=== PATIENT | female | born 1980 | race African-American/Black ===

== ENCOUNTER 2020-07-03 15:30 | Emergency (ER) | payer OTHER, SELFPAY ==
[2020-07-03] VITALS (13 sets, daily range): BP systolic 136–185; BP diastolic 87–102; PULSE 67–88; RESP 14–25; TEMP 37.3; O2SAT 97–100
--- NOTE | 2020-07-03 15:42 | DI.RAD.S_ITS ---
PROCEDURE: XR CHEST 2V INDICATIONS: Shortness of breath TECHNIQUE: 2 views of the chest were acquired. COMPARISON: None. FINDINGS: Surgical changes and devices: None. Lungs and pleura: Lungs demonstrate no focal consolidation or obviously abnormal interstitial markings. No radiographic findings of pulmonary edema. No pleural effusions or pneumothorax. Mediastinum: Mediastinal contours are normal. Heart size is normal. Bones and chest wall: No suspicious bony abnormalities. Soft tissues appear unremarkable. IMPRESSION: No acute cardiopulmonary process demonstrated radiographically. Dictated by: Nitesh Tadeo M.D. on 07/03/2020 at 16:36 Approved by: Nitesh Tadeo M.D. on 07/03/2020 at 16:37
[2020-07-03 16:15] LABS: Add Manual Diff / Slide Review NO; Basophils Absolute Auto 0 /uL (0-100); Basophils Percent Auto 0.3 % (0-2); Eosinophils Absolute Auto 0 /uL (0-450); Eosinophils Percent Auto 0.1 % (2-4); Hematocrit 43.1 % (36-46); Hemoglobin 14.4 g/dL (12.0-16.0); Lymphocytes Absolute Auto 1600 /uL (1100-4500); Lymphocytes Percent Auto 14.4 % (25-40); Mean Corpuscular HGB Conc 33.5 % (30-36); Mean Corpuscular Hemoglobin 29.6 PG (26-34); Mean Corpuscular Volume 88.5 fL (80-100); Monocytes Absolute Auto 600 /uL (0-900); Monocytes Percent Auto 5.3 % (3-14); Neutrophils Absolute Auto 9200 /uL (1500-7000); Neutrophils Percent Auto 79.9 % (50-75); Platelet Count 355 X10^3/uL (150-400); Red Blood Cell Count 4.87 X10^6/uL (4.0-5.2); Red Cell Distribution Width 13.7 % (11.6-14.8); White Blood Cell Count 11.5 X10^3/uL (4.5-11.0)
--- NOTE | 2020-07-03 16:33 | ED.SOB ---
HPI - SOB/Dyspnea General Chief Complaint: Shortness of Breath/Dyspnea Stated Complaint: short of breath, headache Time Seen by Provider: 07/03/20 15:43 Source: patient Mode of arrival: Ambulatory Limitations: no limitations History of Present Illness HPI Narrative: This is a 39 year old female, nonsmoker, has history of asthma and cornea transplant presents to ED with chief complain of mid chest tightness with short of breath, and frontal headache and malaise for last 2 days. Patient reports she is not able to take full deep breaths and her short of breath is not improving using albuterol inhaler at home. She reports it does not feels like her usual asthma problems. She usually does not require to use inhaler daily. Patient states also noticed bilateral swelling last couple of days but this has improved today. Patient denies calf or lower extremity discomfort. Patient reports she had flew to [place] beginning of last month and returned home. She denies on hormone replacement, control pill, previous DVT or blood clots or previous cardiac history. Patient reports 1 of her sisters had DVT and pulmonary embolism. Patient also reports frontal headache for last 2 days. She denies weakness to 1 extremities, speech difficulty, changes in her visions. Patient denies neck rigidity or tenderness, unusual rashes. Patient reports had hives 2 days ago which has resolved. Patient denies cough, congestion, sore throat, diarrhea, constipation. 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 Patient reports noticed loss of taste. Patient denies history of migraine or tension headaches. Reports nothing improves her headache or aggravates such as nodes, lights. Patient rates headache as 8/10 and constant pounding. Related Data Home Medications Medication Instructions Recorded Confirmed [ALBUTEROL SULFATE] QDAY #0 07/01/12 Previous Rx's Medication Instructions Recorded prednisone 40 mg PO DAILY 5 Days #10 tab 07/03/20 Allergies Allergy/AdvReac Type Severity Reaction Status Date / Time oats [OATS] Allergy Unknown Unverified 03/10/18 12:18 DUST Allergy Unknown Uncoded 03/10/18 12:18 Review of Systems Review of Systems Narrative: General: Denies fever, chills, (+) fatigue, (+) malaise, sweats. HEENT: Denies sinus pain, ear pain, sore throat, difficulty swallowing, dizziness. Respiratory: Denies (+) dyspnea, cough, wheezing, hemoptysis, sputum. Cardiovascular: Denies (+) mid chest pain tightness, palpitations, orthopnea, (+) bilateral lower leg edema. Gastrointestinal: Denies nausea, vomiting, abdominal pain, diarrhea, constipation, melena, (+) loss sense of taste. : Denies dysuria, frequency, incontinence, hematuria, urinary retention. Musculoskeletal: Denies weakness, joint pain or bony pain. Skin: Denies rash, skin lesions, or other. Neurologic: Denies weakness, (+) headache, numbness, change in speech, confusion, seizures, incoordination. Psychiatric: No concerning psychosocial issues. 12-point review of systems is negative except for those stated above. Patient History Medical History Asthma (Acute) Cornea transplant recipient (Acute) Social History Smoking Status: Never smoker Smoking Status: Never smoker Substance Use Type: does not use Exam Narrative Exam Narrative: GEN: Alert, oriented x 3, well appearing and nourished, and in no acute distress. Head: Normal cephalic, atraumatic. No scalp or temporal tenderness, palpable mass or rash. EYES: Pupils are equal, round, and reactive to light and accommodation. Extraocular muscles are intact. There is no subconjunctival hemorrhage, exudate and sclera non-icteric. ENT: Hearing grossly intact. Nose without bleeding, purulent discharge, septal hematoma or deviation. Turbinate without erythema or swelling. Facial sinuses nontender to palpate. Mucous membrane moist, no mucosal lesion. Throat without erythema, tonsillar hypertrophy or exudate. Uvula in midline, airway patent. Neck: Trachea in midline. No JVD, non-tender without lymphadenopathy. No masses or thyroid megaly. Supple, non-tender and no meningeal signs. CARDIAC: Normal regular rate and rhythm without murmurs, gallops, or rubs. No chest wall tenderness. No peripheral edema, cyanosis or pallor. Capillary refill is less than 2 seconds. No carotid bruits. RESPIRATORY: Lungs are cleat to auscultate bilaterally but decreased. Shallow tachypnea rate in 26/min. No cough, wheezes, rales, or rhonchi. No stridor, increase work of breathing, or accessary muscle used. ABD: Abdomen soft, nontender and non-distended. No guarding or rebound tenderness to palpate. Bowel sounds are normal in all 4 quadrants. There is no palpable masses or organomegaly. EXT: Full painless ROM of all extremities with no loss of sensation, strength, effusion or edema. SKIN: Warm, dry, normal color for patient. No erythema, lesions or rash. BACK: Nontender without deformity or crepitance. No flank tenderness. NEUROLOGICAL: Alert and oriented to place, time and person. No facial droops, dysphasia. CN II-XII intact. Strength and sensation symmetric and intact throughout. Cerebellar testing normal. PSYCHIATRIC: Good judgement and reason, without hallucinations, abnormal affect or abnormal behaviors during the examination. Patient is not suicidal. Initial Vital Signs Initial Vital Signs: Vital Signs Temperature 99.1 F 07/03/20 15:37 Pulse Rate 88 07/03/20 15:37 Respiratory Rate 22 07/03/20 15:37 Blood Pressure 185/102 H 07/03/20 15:37 Pulse Oximetry 97 07/03/20 15:37 Scores GCS Ning coma scale eye opening: Spontaneous Ning coma scale verbal response: Orientated Ning coma scale motor response: Obey commands [place] coma scale total score: 15 Wells' Criteria for PE Clinical signs and symptoms of DVT: No PE is #1 Dx or equally likely: Yes Heart rate > 100: No Immobilization at least 3 days or surg in previous 4 weeks: No History of PE or DVT: No Hemoptysis: No Malignancy w/Treatment within 6 months or palliative: No Wells' PE Score total: 3 Wells' Criteria for DVT Active Cancer (Treatment within 6 months): No Bedridden recently >3 days or major surgery within 4 weeks: No Calf Swelling >3cm compared to other leg: No Collateral (nonvericose) superficial veins present: No Entire leg swollen: No Localized tenderness along the deep vein system: No Pitting edema, confined to symtomatic leg: Yes Paralysis, paresis, or recent plaster immobilization of ext: No Previously documented DVT: No Alternative dx to DVT as likely or more likely: Yes Wells' criteria for DVT: -1 Course Orders Ordered: ED Orders 07/03/20 15:42 XR chest 2V Stat EKG-12 Lead Stat Measure peak expiratory flow ONCE RT Consult Eval and Treat Now 07/03/20 16:08 Complete Blood Count AUTO DIFF Stat Comprehensive Metabolic Panel Stat Lactate (Lactic Acid) Stat 07/03/20 16:56 C-Reactive Protein Quant Stat D Dimer Stat Erythrocyte Sedimentation Rate Stat Ferritin Stat Magnesium Stat NT-proBNP (BNP-Adult 18+) Stat Partial Thromboplastin Time Stat Procalcitonin Stat Prothrombin Time INR Stat Troponin & CK Cardiac Panel Stat 07/03/20 17:30 CT angio chest PE protocol Stat 07/03/20 18:40 Urine Culture Stat Urine Microscopic Stat Discontinued Medications Acetaminophen (Tylenol) 650 mg PO NOW ONE Stop: 07/03/20 17:33 Last Admin: 07/03/20 18:50 Dose: 650 mg Documented by: CHARLETTE Albuterol (Ventolin Hfa Prepack) 1 box MISC SEEINSTR ONE Stop: 07/03/20 16:33 Last Admin: 07/03/20 16:55 Dose: 1 box Documented by: CAMILA Albuterol/Ipratropium (Duoneb) 3 ml INH NOW ONE Stop: 07/03/20 19:54 Last Admin: 07/03/20 20:12 Dose: 3 ml Documented by: DONYA Sodium Chloride (Normal Saline 0.9%) 1,000 mls @ 1,000 mls/hr IV BOLUS ONE Stop: 07/03/20 19:45 Last Infusion: 07/03/20 20:00 Dose: 0 mls/hr Documented by: Admin: 07/03/20 18:50 Dose: 1,000 mls/hr Documented by: CHARLETTE Ketorolac Tromethamine (Toradol) 15 mg IV NOW ONE Stop: 07/03/20 18:47 Last Admin: 07/03/20 18:53 Dose: 15 mg Documented by: CHARLETTE Reevaluation(s) Reevaluation #1: Reports short of breath has mildly improved after 4 puffs of inhaler of albuterol. Increased D-dimer to [address] for PE test has ordered. Time: 17:00 Reevaluation #2: Difficulty IV start. Will order Toradol and IVF for headache and proceed with chest PE test Time: 18:48 Reevaluation #3: Reports headache is improving but reports recurring chest tightness and shortness of breath. Covid test is negative and will order duoneb treatment. Time: 19:54 Vital Signs Vital signs: Vital Signs - 8 hr 07/03/20 15:37 07/03/20 16:59 07/03/20 17:57 Temperature 99.1 F Pulse Rate 88 80 Respiratory Rate 22 14 22 Blood Pressure 185/102 H Blood Pressure [Left Arm] Pulse Oximetry 97 100 07/03/20 18:00 07/03/20 18:30 07/03/20 18:36 Temperature Pulse Rate 78 77 75 Respiratory Rate 18 21 24 Blood Pressure 148/91 H Blood Pressure [Left Arm] Pulse Oximetry 07/03/20 18:45 07/03/20 18:56 07/03/20 19:00 Temperature Pulse Rate 82 76 74 Respiratory Rate 25 H 18 23 Blood Pressure 152/89 H 146/87 H Blood Pressure [Left Arm] 152/89 H Pulse Oximetry 100 98 99 07/03/20 19:16 07/03/20 19:37 07/03/20 20:00 Temperature Pulse Rate 73 74 68 Respiratory Rate 19 17 21 Blood Pressure 136/87 Blood Pressure [Left Arm] Pulse Oximetry 100 100 07/03/20 20:16 Temperature Pulse Rate 67 Respiratory Rate 16 Blood Pressure Blood Pressure [Left Arm] Pulse Oximetry 99 MDM - SOB/Dyspnea Differential Diagnosis Differential diagnosis: Likely congestive heart failure, community acquired pneumonia, asthma with exacerbation, pulmonary embolism and other (NSTEMI, Covid, headache, meningitis, hypertensive headache) Medical Records Attestation: I reviewed the patient's medical records. Lab Data Attestation: I reviewed the patient's lab results. Result diagrams: 07/03/20 16:08 07/03/20 16:08 Labs: Lab Results 07/03/20 07/03/20 07/03/20 Range/Units 16:08 16:08 16:08 WBC 11.5 H (4.5-11.0) X10^3/uL RBC 4.87 (4.0-5.2) X10^6/uL Hgb 14.4 (12.0-16.0) g/dL Hct 43.1 (36-46) % MCV 88.5 (80-100) fL MCH 29.6 (26-34) PG MCHC 33.5 (30-36) % RDW 13.7 (11.6-14.8) % Plt Count 355 (150-400) X10^3/uL Neut % (Auto) 79.9 H (50-75) % Lymph % (Auto) 14.4 L (25-40) % [place] % (Auto) 5.3 (3-14) % Eos % (Auto) 0.1 L (2-4) % Baso % (Auto) 0.3 (0-2) % Neut # (Auto) 9200 H (0855-3342) /uL Lymph # (Auto) 1600 (8467-4741) /uL [place] # (Auto) 600 (0-900) /uL Eos # (Auto) 0 (0-450) /uL Baso # (Auto) 0 (0-100) /uL ESR (0-20) MM/HR PT (10.1-12.7) SECONDS INR (0.9-1.3) APTT (26.4-36.2) SECONDS D-Dimer (<230) ng/mL Sodium 139 (137-145) mmol/L Potassium 4.6 (3.4-5.1) mmol/L Chloride 103 (98-107) mmol/L Carbon Dioxide 22 (22-32) mmol/L BUN 7 (7-17) mg/dL Creatinine 0.53 (0.52-1.04) mg/dL Estimated GFR > 60.0 (>60) mL/min BUN/Creatinine Ratio 13.2 (6-22) Glucose 163 H (70-100) mg/dL Lactate 2.1 (0.7-2.1) mmol/L Calcium 10.2 (8.4-10.2) mg/dL Magnesium (1.6-2.3) mg/dL Ferritin (6-137) ng/mL Total Bilirubin 0.7 (0.2-1.3) mg/dL AST 32 (14-36) IU/L ALT 36 H (<35) IU/L Alkaline Phosphatase 69 (38-126) U/L Total Creatine Kinase (30-135) U/L CK-MB (CK-2) (<2.37) ng/mL CK-MB (CK-2) Rel Index (1.5-5.0) % Troponin I (0.01-0.034) ng/mL C-Reactive Protein (<1.0) mg/dL NT-Pro-B Natriuret Pep (<125) pg/mL Total Protein 10.1 H* (6.3-8.2) g/dL Albumin 5.1 H (3.5-5.0) g/dL Globulin 5.0 H (1.7-4.1) g/dL Albumin/Globulin Ratio 1.0 (1.0-2.8) Procalcitonin (<0.5) ng/mL Urine RBC (0-5/HPF) Urine WBC (0-5/HPF) Ur Squamous Epith Cells (0-5/HPF) Urine Bacteria (None) Ur Culture Indicated? Micro UA Comment COVID-19 PCR (Negative) 07/03/20 07/03/20 07/03/20 Range/Units 16:24 16:56 16:56 WBC (4.5-11.0) X10^3/uL RBC (4.0-5.2) X10^6/uL Hgb (12.0-16.0) g/dL Hct (36-46) % MCV (80-100) fL MCH (26-34) PG MCHC (30-36) % RDW (11.6-14.8) % Plt Count (150-400) X10^3/uL Neut % (Auto) (50-75) % Lymph % (Auto) (25-40) % [place] % (Auto) (3-14) % Eos % (Auto) (2-4) % Baso % (Auto) (0-2) % Neut # (Auto) (1859-0092) /uL Lymph # (Auto) (3380-8623) /uL [place] # (Auto) (0-900) /uL Eos # (Auto) (0-450) /uL Baso # (Auto) (0-100) /uL ESR (0-20) MM/HR PT 12.8 H (10.1-12.7) SECONDS INR 1.1 (0.9-1.3) APTT (26.4-36.2) SECONDS D-Dimer 777 H (<230) ng/mL Sodium (137-145) mmol/L Potassium (3.4-5.1) mmol/L Chloride (98-107) mmol/L Carbon Dioxide (22-32) mmol/L BUN (7-17) mg/dL Creatinine (0.52-1.04) mg/dL Estimated GFR (>60) mL/min BUN/Creatinine Ratio (6-22) Glucose (70-100) mg/dL Lactate (0.7-2.1) mmol/L Calcium (8.4-10.2) mg/dL Magnesium (1.6-2.3) mg/dL Ferritin (6-137) ng/mL Total Bilirubin (0.2-1.3) mg/dL AST (14-36) IU/L ALT (<35) IU/L Alkaline Phosphatase (38-126) U/L Total Creatine Kinase (30-135) U/L CK-MB (CK-2) (<2.37) ng/mL CK-MB (CK-2) Rel Index (1.5-5.0) % Troponin I (0.01-0.034) ng/mL C-Reactive Protein (<1.0) mg/dL NT-Pro-B Natriuret Pep (<125) pg/mL Total Protein (6.3-8.2) g/dL Albumin (3.5-5.0) g/dL Globulin (1.7-4.1) g/dL Albumin/Globulin Ratio (1.0-2.8) Procalcitonin (<0.5) ng/mL Urine RBC (0-5/HPF) Urine WBC (0-5/HPF) Ur Squamous Epith Cells (0-5/HPF) Urine Bacteria (None) Ur Culture Indicated? Micro UA Comment COVID-19 PCR Negative Cancelled (Negative) 07/03/20 07/03/20 07/03/20 Range/Units 16:56 16:56 16:56 WBC (4.5-11.0) X10^3/uL RBC (4.0-5.2) X10^6/uL Hgb (12.0-16.0) g/dL Hct (36-46) % MCV (80-100) fL MCH (26-34) PG MCHC (30-36) % RDW (11.6-14.8) % Plt Count (150-400) X10^3/uL Neut % (Auto) (50-75) % Lymph % (Auto) (25-40) % [place] % (Auto) (3-14) % Eos % (Auto) (2-4) % Baso % (Auto) (0-2) % Neut # (Auto) (8142-7870) /uL Lymph # (Auto) (2106-4557) /uL [place] # (Auto) (0-900) /uL Eos # (Auto) (0-450) /uL Baso # (Auto) (0-100) /uL ESR 29 H (0-20) MM/HR PT (10.1-12.7) SECONDS INR (0.9-1.3) APTT 28 (26.4-36.2) SECONDS D-Dimer (<230) ng/mL Sodium (137-145) mmol/L Potassium (3.4-5.1) mmol/L Chloride (98-107) mmol/L Carbon Dioxide (22-32) mmol/L BUN (7-17) mg/dL Creatinine (0.52-1.04) mg/dL Estimated GFR (>60) mL/min BUN/Creatinine Ratio (6-22) Glucose (70-100) mg/dL Lactate (0.7-2.1) mmol/L Calcium (8.4-10.2) mg/dL Magnesium (1.6-2.3) mg/dL Ferritin (6-137) ng/mL Total Bilirubin (0.2-1.3) mg/dL AST (14-36) IU/L ALT (<35) IU/L Alkaline Phosphatase (38-126) U/L Total Creatine Kinase 133 (30-135) U/L CK-MB (CK-2) 0.78 (<2.37) ng/mL CK-MB (CK-2) Rel Index 0.6 L (1.5-5.0) % Troponin I < 0.012 (0.01-0.034) ng/mL C-Reactive Protein (<1.0) mg/dL NT-Pro-B Natriuret Pep 40 (<125) pg/mL Total Protein (6.3-8.2) g/dL Albumin (3.5-5.0) g/dL Globulin (1.7-4.1) g/dL Albumin/Globulin Ratio (1.0-2.8) Procalcitonin (<0.5) ng/mL Urine RBC (0-5/HPF) Urine WBC (0-5/HPF) Ur Squamous Epith Cells (0-5/HPF) Urine Bacteria (None) Ur Culture Indicated? Micro UA Comment COVID-19 PCR (Negative) 07/03/20 07/03/20 07/03/20 Range/Units 16:56 16:56 16:56 WBC (4.5-11.0) X10^3/uL RBC (4.0-5.2) X10^6/uL Hgb (12.0-16.0) g/dL Hct (36-46) % MCV (80-100) fL MCH (26-34) PG MCHC (30-36) % RDW (11.6-14.8) % Plt Count (150-400) X10^3/uL Neut % (Auto) (50-75) % Lymph % (Auto) (25-40) % [place] % (Auto) (3-14) % Eos % (Auto) (2-4) % Baso % (Auto) (0-2) % Neut # (Auto) (0175-2146) /uL Lymph # (Auto) (7377-9749) /uL [place] # (Auto) (0-900) /uL Eos # (Auto) (0-450) /uL Baso # (Auto) (0-100) /uL ESR (0-20) MM/HR PT (10.1-12.7) SECONDS INR (0.9-1.3) APTT (26.4-36.2) SECONDS D-Dimer (<230) ng/mL Sodium (137-145) mmol/L Potassium (3.4-5.1) mmol/L Chloride (98-107) mmol/L Carbon Dioxide (22-32) mmol/L BUN (7-17) mg/dL Creatinine (0.52-1.04) mg/dL Estimated GFR (>60) mL/min BUN/Creatinine Ratio (6-22) Glucose (70-100) mg/dL Lactate (0.7-2.1) mmol/L Calcium (8.4-10.2) mg/dL Magnesium 2.1 (1.6-2.3) mg/dL Ferritin (6-137) ng/mL Total Bilirubin (0.2-1.3) mg/dL AST (14-36) IU/L ALT (<35) IU/L Alkaline Phosphatase (38-126) U/L Total Creatine Kinase (30-135) U/L CK-MB (CK-2) (<2.37) ng/mL CK-MB (CK-2) Rel Index (1.5-5.0) % Troponin I (0.01-0.034) ng/mL C-Reactive Protein < 0.5 (<1.0) mg/dL NT-Pro-B Natriuret Pep (<125) pg/mL Total Protein (6.3-8.2) g/dL Albumin (3.5-5.0) g/dL Globulin (1.7-4.1) g/dL Albumin/Globulin Ratio (1.0-2.8) Procalcitonin < 0.05 (<0.5) ng/mL Urine RBC (0-5/HPF) Urine WBC (0-5/HPF) Ur Squamous Epith Cells (0-5/HPF) Urine Bacteria (None) Ur Culture Indicated? Micro UA Comment COVID-19 PCR (Negative) 07/03/20 07/03/20 Range/Units 16:56 18:40 WBC (4.5-11.0) X10^3/uL RBC (4.0-5.2) X10^6/uL Hgb (12.0-16.0) g/dL Hct (36-46) % MCV (80-100) fL MCH (26-34) PG MCHC (30-36) % RDW (11.6-14.8) % Plt Count (150-400) X10^3/uL Neut % (Auto) (50-75) % Lymph % (Auto) (25-40) % [place] % (Auto) (3-14) % Eos % (Auto) (2-4) % Baso % (Auto) (0-2) % Neut # (Auto) (8291-6216) /uL Lymph # (Auto) (3849-1578) /uL [place] # (Auto) (0-900) /uL Eos # (Auto) (0-450) /uL Baso # (Auto) (0-100) /uL ESR (0-20) MM/HR PT (10.1-12.7) SECONDS INR (0.9-1.3) APTT (26.4-36.2) SECONDS D-Dimer (<230) ng/mL Sodium (137-145) mmol/L Potassium (3.4-5.1) mmol/L Chloride (98-107) mmol/L Carbon Dioxide (22-32) mmol/L BUN (7-17) mg/dL Creatinine (0.52-1.04) mg/dL Estimated GFR (>60) mL/min BUN/Creatinine Ratio (6-22) Glucose (70-100) mg/dL Lactate (0.7-2.1) mmol/L Calcium (8.4-10.2) mg/dL Magnesium (1.6-2.3) mg/dL Ferritin 16 (6-137) ng/mL Total Bilirubin (0.2-1.3) mg/dL AST (14-36) IU/L ALT (<35) IU/L Alkaline Phosphatase (38-126) U/L Total Creatine Kinase (30-135) U/L CK-MB (CK-2) (<2.37) ng/mL CK-MB (CK-2) Rel Index (1.5-5.0) % Troponin I (0.01-0.034) ng/mL C-Reactive Protein (<1.0) mg/dL NT-Pro-B Natriuret Pep (<125) pg/mL Total Protein (6.3-8.2) g/dL Albumin (3.5-5.0) g/dL Globulin (1.7-4.1) g/dL Albumin/Globulin Ratio (1.0-2.8) Procalcitonin (<0.5) ng/mL Urine RBC None seen (0-5/HPF) Urine WBC 1-5/hpf (0-5/HPF) Ur Squamous Epith Cells 0-1 /hpf (0-5/HPF) Urine Bacteria Occasional (0-1) (None) Ur Culture Indicated? Specimen cultured Micro UA Comment Judson esterase + COVID-19 PCR (Negative) Urine Dip Bedside Urine Glucose Negative Bedside Urine Bilirubin - Negative Bedside Urine Ketone - Negative Urine Specific Cres[place] 1.010 Bedside Urine Occult Blood - Negative Bedside Urine Protein - Negative Bedside Urine Urobilinogen +/- 1mg Bedside Urine Nitrite - Negative Bedside Urine Leukocytes +/- 15 Esterase Imaging Data Chest x-ray: Radiologist's Impression: [address] [address] XRay Report Signed Patient: Natalee Miles EMR#: [id number] : 1980Acct:[id number] Age/Sex: 39 / FDate of Service: 07/03/20 Loc: ED Accession Number: [id number] Procedure: XR chest 2V Ordering Provider: Nixon Manjarrez MD PROCEDURE: XR CHEST 2V INDICATIONS: Shortness of breath TECHNIQUE: 2 views of the chest were acquired. COMPARISON: None. FINDINGS: Surgical changes and devices: None. Lungs and pleura: Lungs demonstrate no focal consolidation or obviously abnormal interstitial markings. No radiographic findings of pulmonary edema. No pleural effusions or pneumothorax. Mediastinum: Mediastinal contours are normal. Heart size is normal. Bones and chest wall: No suspicious bony abnormalities. Soft tissues appear unremarkable. IMPRESSION: No acute cardiopulmonary process demonstrated radiographically. Dictated by: Nitesh Tadeo M.D. on 07/03/2020 at 16:36 Approved by: Nitesh Tadeo M.D. on 07/03/2020 at 16:37 CT scan - chest: Radiologist's Impression: [address] [address] [address] Scan Report Signed Patient: Natalee Miles EMR#: [id number] : 1980Acct:[id number] Age/Sex: 39 / FDate of Service: 07/03/20 Loc: ED Accession Number: [id number] Procedure: CT angio chest PE protocol Ordering Provider: Gomez Garcia PROCEDURE: CT ANGIO CHEST PE PROTOCOL INDICATIONS: SOB, tachypnea, elevated ddimer, FHX of DVT/PE TECHNIQUE: After the administration of intravenous contrast, 2 mm thick sections acquired from the pulmonary apices to the posterior costophrenic angles. 3-dimensional maximum intensity projection (MIP) coronal and sagittal reformats were then acquired through the thorax. For radiation dose reduction, the following was used: automated exposure control, adjustment of mA and/or kV according to patient size. COMPARISON: [facility], , XR CHEST 2V, 07/03/2020, 16:08. FINDINGS: Image quality: Excellent. Pulmonary arteries: Pulmonary arteries are normal in size, and demonstrate no intraluminal filling defects to suggest central pulmonary embolism. Lungs and pleura: Lungs are clear. No pleural effusions or pneumothorax. Central and peripheral airways are patent. Mediastinum: Heart size is normal, without pericardial effusion. No mediastinal or hilar adenopathy. Thoracic aorta is normal in caliber and enhancement. Esophagus is normal in caliber. Small hiatal hernia. Bones and chest wall: No suspicious bony lesions. Ribs and thoracic spine appear intact throughout. Thyroid gland is normal. No axillary or supraclavicular adenopathy. Abdomen: Visualized upper abdominal solid organs appear normal in the early arterial phase of enhancement. IMPRESSION: 1. No evidence for pulmonary embolism. 2. No acute cardiopulmonary process. 3. Small hiatal hernia. Dictated by: Heriberto Hopper M.D. on 07/03/2020 at 19:46 Approved by: Heriberto Hopper M.D. on 07/03/2020 at 19:50 ECG Data Attestation: I personally reviewed and interpreted this ECG as follows: Prior ECG tracings: not available for review Interpretation: Normal sinus rhythm rate at 92. Left dominant axis. MI interval 168, QRS duration 94, QT/QTC 344/[address] changes MDM Narrative Medical decision making narrative: This is a 39-year-old female who presents to ED with pleural chest pain, short of breath unrelieved with albuterol inhaler use, bilateral leg swelling, family history of DVT and PE, loss of sense of taste, headache, recent travel to and returned to home about 5 weeks ago for last 2 days. Lung sounds are clear but diminished in all lobes. Heart rate was in 90's with o2 sat >97% in RA and she was in afebrile but with shallow, tachypnea. EKG was sinus rhythm. Cardiac enzymes negative. ProBNP was normal with normal heart size in chest x-ray. Patient had elevated serum glucose of 163 without history of diabetes. Patient has slightly elevated white count as 11.5 with neutrophil of 79.9% but procalcitonin and lactate was within normal limits and no evidence of pneumonia in chest x-ray. D dimer was ordered as screening for PE and it returned elevated as 777 with corrected for her age. CT of chest was obtained and showed no evidence of pulmonary embolism but incidental finding of small hiatal hernia. Physical exam is not consistent with DVT in lower extremities. 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 The patient was treated with 4 puffs of albuterol inhaler initially before the OB test came back negative. She reported slightly improved short of breath. Patient was provided with IV fluid, Tylenol, and Toradol which improved the headaches. She received DuoNeb nebulizer treatment which improved her breathing. It is likely her symptoms are related to asthma exacerbation and she was advised to use inhaler as needed for short of breath, cough, wheezing and to start a short course of prednisone after discussing possible side effects. Return precautions were discussed with patient and patient verbalized understanding and agreement with treatment plan. Discharge Plan Departure Patient Disposition: Home Clinical Impression: Asthma with exacerbation Qualifiers: Asthma severity: unspecified severity Asthma persistence: unspecified Qualified Code(s): J45.901 - Unspecified asthma with (acute) exacerbation Discharge Date/Time: 07/03/20 20:40 Instructions: DI for Asthma -- Adult Activity Restrictions/Additional Instructions: You have been diagnosed with [asthma exacerbation. Covid test was negative. CT test no evidence for pulmonary embolism or acute findings including pneumonia, pericardial effusion and normal heart size. EKG, cardiac enzymes were unremarkable. D-dimer was mildly elevated. Urine culture is pending. You will receive a phone call if you require antibiotic medication treatment.]. What to do: *Take your medications as directed. Prednisone has been transmitted to [facility] in [place]. You can start taking this tomorrow to avoid insomnia tonight. *Follow up with your primary care provider in 2-3 days, call for an appointment. Let them know you were seen in the ED and that we asked you to be seen in follow up. *Return to ED if you have any new, worsening, or concerning symptoms, such as [chest pain different or worse, breathing difficulty not relieved by using her inhaler, fever, unable to tolerate fluids, or any worsening symptoms.]. Prescriptions: New prednisone 20 mg tablet 40 mg PO DAILY 5 Days Qty: 10 RF: 0 No Action [ALBUTEROL SULFATE] QDAY Qty: 0 RF: 0 Referrals: [facility] [Outside]
[2020-07-03 16:39] LABS: Alanine Aminotransferase 36 IU/L (<35); Albumin 5.1 g/dL (3.5-5.0); Alkaline Phosphatase 69 U/L (38-126); Aspartate Aminotransferase 32 IU/L (14-36); BUN Creatinine Ratio 13.2 (6-22); Bilirubin Total 0.7 mg/dL (0.2-1.3); Blood Urea Nitrogen 7 mg/dL (7-17); Calcium 10.2 mg/dL (8.4-10.2); Carbon Dioxide 22 mmol/L (22-32); Chloride 103 mmol/L (98-107); Estimated Glomerular Filt Rate > 60.0 mL/min (>60); Glucose 163 mg/dL (70-100); HEMOLYSIS 39 (0-50); Potassium 4.6 mmol/L (3.4-5.1); Sodium 139 mmol/L (137-145)
[2020-07-03 16:40] LABS: Lactate (Lactic Acid) 2.1 mmol/L (0.7-2.1)
[2020-07-03] MEDS: ALBUTEROL HFA PREPACK 1 BOX MISC (16:55)
[2020-07-03 16:56] LABS: Total Protein 10.1 g/dL (6.3-8.2)
[2020-07-03 17:18] LABS: INR 1.1 (0.9-1.3); Prothrombin Time 12.8 SECONDS (10.1-12.7)
[2020-07-03 17:21] LABS: D Dimer 777 ng/mL (<230)
[2020-07-03 17:24] LABS: Creatine Kinase 133 U/L (30-135)
[2020-07-03 17:25] LABS: Magnesium 2.1 mg/dL (1.6-2.3)
[2020-07-03 17:30] LABS: Erythrocyte Sedimentation Rate 29 MM/HR (0-20)
--- NOTE | 2020-07-03 17:30 | DI.CT.S_ITS ---
PROCEDURE: CT ANGIO CHEST PE PROTOCOL INDICATIONS: SOB, tachypnea, elevated ddimer, FHX of DVT/PE TECHNIQUE: After the administration of intravenous contrast, 2 mm thick sections acquired from the pulmonary apices to the posterior costophrenic angles. 3-dimensional maximum intensity projection (MIP) coronal and sagittal reformats were then acquired through the thorax. For radiation dose reduction, the following was used: automated exposure control, adjustment of mA and/or kV according to patient size. COMPARISON: [facility], CR, XR CHEST 2V, 07/03/2020, 16:08. FINDINGS: Image quality: Excellent. Pulmonary arteries: Pulmonary arteries are normal in size, and demonstrate no intraluminal filling defects to suggest central pulmonary embolism. Lungs and pleura: Lungs are clear. No pleural effusions or pneumothorax. Central and peripheral airways are patent. Mediastinum: Heart size is normal, without pericardial effusion. No mediastinal or hilar adenopathy. Thoracic aorta is normal in caliber and enhancement. Esophagus is normal in caliber. Small hiatal hernia. Bones and chest wall: No suspicious bony lesions. Ribs and thoracic spine appear intact throughout. Thyroid gland is normal. No axillary or supraclavicular adenopathy. Abdomen: Visualized upper abdominal solid organs appear normal in the early arterial phase of enhancement. IMPRESSION: 1. No evidence for pulmonary embolism. 2. No acute cardiopulmonary process. 3. Small hiatal hernia. Dictated by: Heriberto Hopper M.D. on 07/03/2020 at 19:46 Approved by: Heriberto Hopper M.D. on 07/03/2020 at 19:50
[2020-07-03 17:32] LABS: PTT Partial Thromboplastin Tim 28 SECONDS (26.4-36.2)
[2020-07-03 17:35] LABS: C-Reactive Protein Quant < 0.5 mg/dL (<1.0)
[2020-07-03 17:46] LABS: Procalcitonin < 0.05 ng/mL (<0.5)
[2020-07-03 17:50] LABS: CKMB % Relative Index 0.6 % (1.5-5.0); Creatine Kinase MB 0.78 ng/mL (<2.37)
[2020-07-03 17:51] LABS: NT-proBNP (BNP-Adult 18+) 40 pg/mL (<125)
[2020-07-03 18:10] LABS: Troponin I < 0.012 ng/mL (0.01-0.034)
[2020-07-03 18:27] LABS: Ferritin 16 ng/mL (6-137)
[2020-07-03 18:47] LABS: COVID19 -Nasal RAPID Negative (Negative)
[2020-07-03] MEDS: SODIUM CHLORIDE 0.9% 1,000 ML 1000 ML IV (18:50)
[2020-07-03] MEDS: ACETAMINOPHEN 325 MG TABLET 650 MG PO (18:50)
[2020-07-03] MEDS: KETOROLAC 60 MG/2 ML VIAL 15 MG IV (18:53)
[2020-07-03 19:16] LABS: Bacteria Urine Occasional (0-1); Culture Indicated Urine Specimen Cultured; RBC Urine None Seen (0-5/HPF); Squamous Epithelial Cell Urine 0-1 /HPF (0-5/HPF); Urine Comments LEU ESTERASE +; WBC Urine 1-5/HPF (0-5/HPF)
[2020-07-03] MEDS: ALBUTEROL/IPRATROPIUM 3 ML AMPUL INH (20:12)
== END 2020-07-03 20:40 | disposition home or self-care (01) ==
PROVIDERS: Emergency Medicine; Emergency Provider Nurse Practitioner Family
DX: J45.901 Unspecified asthma with (acute) exacerbation (principal); R06.82 Tachypnea, not elsewhere classified; R07.9 Chest pain, unspecified; R51 Headache; R60.9 Edema, unspecified; R79.89 Other specified abnormal findings of blood chemistry
CPT/HCPCS: 36415; 71046; 71275; 80053; 81003; 81015; 82550; 82553; 82728; 83605; 83735; 83880; 84145; 84484; 85025; 85379; 85610; 85651; 85730; 86140; 87086; 87635; 93005; 94150; 94640; 96361; 96374; 99284; J1885; Q9967

== ENCOUNTER 2021-01-20 22:00 | Emergency (ER) | payer OTHER, SELFPAY ==
[2021-01-20 22:12] VITALS: BP 187/95; PULSE 75; RESP 20; TEMP 36.4; O2SAT 99; BMI 36.0
--- NOTE | 2021-01-20 22:15 | DI.RAD.S_ITS ---
PROCEDURE: XR CHEST 1V INDICATIONS: chest pain TECHNIQUE: One view of the chest was acquired. COMPARISON: [facility], CR, XR CHEST 2V, 07/03/2020, 16:08. FINDINGS: Surgical changes and devices: None. Lungs and pleura: Lungs are clear. No pleural effusions or pneumothorax. Mediastinum: Mediastinal contours appear normal. Heart size is normal. Bones and chest wall: No suspicious bony lesions. Overlying soft tissues appear unremarkable. IMPRESSION: No acute cardiopulmonary disease. Dictated by: Heriberto Hopper M.D. on 01/21/2021 at 8:35 Approved by: Heriberto Hopper M.D. on 01/21/2021 at 8:38
--- NOTE | 2021-01-20 22:45 | ED_ITS ---
HPI - Dizziness General Chief Complaint: Dizziness Stated Complaint: lightheaded, feels like she might pass out Time Seen by Provider: 01/20/21 22:31 Source: patient and family (son is at bedside) Mode of arrival: Ambulatory Limitations: no limitations History of Present Illness HPI Narrative: This is a 40-year-old female comes in complaining of feeling lightheaded. Patient states that she noted about 6:00 p.m. this evening that she started feeling sort of dizzy she describes it is feeling little bit lightheaded or unsteady. She feels like she might pass out although she has not had any actual syncopal episodes or near syncope. She denies any headache initally but does describe pressure in her head, she denies any new vision changes, she denies any chest pain or pressure. She currently denies any short ness of breath. She has had some nausea but denies any vomiting. She has had some epigastric discomfort with some radiation to midabdomen. She has had some mild right flank discomfort as well. No changes to bowel movements, no diarrhea or constipation. She denies any urinary symptoms such as frequency, dysuria or urgency. Denies any numbness, tingling or weakness in her extremities. She sta ana that she feels better when she sits now and worse when she is standing. She has not had similar symptoms in the past. She states she has a history of asthma, she uses albuterol, she also has a history of corneal transplant bilaterally and prior glaucoma surgery. She denies any allergies to me dications. No tobacco, alcohol or illicit. She does not currently have a primary care but he is to follow through would be community clinic. Her father's had cardiac issues, she has multiple family members with diabetes and hypertension but denies any other pulmonary, embolic or other major medical conditions and her family. Related Data Home Medications Medication Instructions Recorded Confirmed [ALBUTEROL SULFATE] QDAY #0 07/01/12 Previous Rx's Medication Instructions Recorded pfasbhkdpy-pjjhdsfnazycu-feld 1 cap PO Q6H PRN #10 cap 01/21/21 [Fioricet] Allergies Allergy/AdvReac Type Severity Reaction Status Date / Time oats [OATS] Allergy Unknown Verified 01/21/21 01:16 DUST Allergy Unknown Uncoded 03/10/18 12:18 Review of Systems Review of Systems ROS Unobtainable: All systems reviewed & are unremarkable except as noted in HPI and below Patient History Medical History (Updated 01/21/21 @ 00:56 by Deanna Aranda DO) Asthma Cornea transplant recipient Social History Smoking Status: Never smoker Smoking Status: Never smoker alcohol intake frequency: 0-2 drinks per day Substance Use Type: does not use Exam Narrative Exam Narrative: GEN: well nourished, well appearing female, alert and oriented x 3, patient appears to be in mild distress. HEENT: Atraumatic, pupils are equal round reactive to light, extraocular movements are intact, nares are clear HEART: Regular rate and rhythm without murmur, clicks, rubs. LUNGS:Lungs clear to auscultation, no wheezes, rales, crackles, chest moves symmetrically, no tachypnea accessory muscle use. ABD:bowel sounds normal, soft, mild epigastric tenderness, no guarding, rebound, rigidity, no masses noted, no hepatosplenomegaly :No CVA tenderness MSCL: Non-tender, no muscle atrophy, muscles strength 5/5 upper and lower extremities, full range of motion NEURO:CN 2-12 intact, sensation normal, normal gait. SKin: No rash, erythema other skin changes appreciated. Initial Vital Signs Initial Vital Signs: Vital Signs Temperature 97.5 F L 01/20/21 22:12 Pulse Rate 75 01/20/21 22:12 Respiratory Rate 20 01/20/21 22:12 Blood Pressure 187/95 H 01/20/21 22:12 Pulse Oximetry 99 01/20/21 22:12 Scores GCS Ning coma scale eye opening: Spontaneous Ning coma scale verbal response: Orientated Ning coma scale motor response: Obey commands Ning coma scale total score: 15 Course Orders Ordered: ED Orders 01/20/21 22:15 XR chest 1V Stat EKG-12 Lead Stat 01/20/21 22:50 Complete Blood Count AUTO DIFF Stat Comprehensive Metabolic Panel Stat Lipase Stat Partial Thromboplastin Time Stat Prothrombin Time INR Stat Troponin & CK Cardiac Panel Stat 01/20/21 22:54 COVID19 Stat 01/20/21 23:54 CT head/brain wo con Stat Discontinued Medications Acetaminophen (Acetaminophen 325 Mg Tablet) 975 mg PO NOW ONE Stop: 01/21/21 01:06 Last Admin: 01/21/21 01:11 Dose: 975 mg Documented by: Sodium Chloride (Normal Saline 0.9%) 1,000 mls @ 1,000 mls/hr IV BOLUS ONE Stop: 01/20/21 23:46 Last Admin: 01/20/21 22:54 Dose: 1,000 mls/hr Documented by: KATHRYN Ketorolac Tromethamine (Ketorolac 60 Mg/2 Ml Vial) 30 mg IV NOW ONE Stop: 01/20/21 23:56 Last Admin: 01/21/21 00:01 Dose: 30 mg Documented by: KATHRYN Ondansetron HCl (Ondansetron 4 Mg/2 Ml Inj) 4 mg IV NOW ONE Stop: 01/20/21 22:48 Last Admin: 01/20/21 22:53 Dose: 4 mg Documented by: KATHRYN Pantoprazole Sodium (Pantoprazole 40 Mg Vial) 40 mg IV NOW ONE Stop: 01/20/21 22:48 Last Admin: 01/20/21 22:53 Dose: 40 mg Documented by: KATHRYN Reevaluation(s) Reevaluation #1: nausea improved, epigastric discomfort present but mild. Pressure/headache worsened. Does have history of migraines but pattern is different with pain posterior head rather than forehead region. Time: 23:55 Vital Signs Vital signs: Vital Signs - 8 hr 01/20/21 22:12 01/20/21 23:02 01/20/21 23:15 Temperature 97.5 F L Pulse Rate 75 Pulse Rate [Orthostatic Lying] 66 Pulse Rate [Orthostatic Sitting] 70 Pulse Rate [Orthostatic Standing] 71 Respiratory Rate 20 Blood Pressure 187/95 H 155/83 H Blood Pressure [Orthostatic Lying] 131/69 Blood Pressure [Orthostatic Sitting] 133/73 Blood Pressure [Orthostatic Standing] 145/84 H Pulse Oximetry 99 01/20/21 23:31 01/21/21 00:01 01/21/21 00:33 Temperature Pulse Rate 65 64 59 L Pulse Rate [Orthostatic Lying] Pulse Rate [Orthostatic Sitting] Pulse Rate [Orthostatic Standing] Respiratory Rate 18 16 14 Blood Pressure 168/70 H 114/66 130/79 Blood Pressure [Orthostatic Lying] Blood Pressure [Orthostatic Sitting] Blood Pressure [Orthostatic Standing] Pulse Oximetry 98 98 100 01/21/21 01:16 Temperature Pulse Rate 60 Pulse Rate [Orthostatic Lying] Pulse Rate [Orthostatic Sitting] Pulse Rate [Orthostatic Standing] Respiratory Rate 18 Blood Pressure 136/75 Blood Pressure [Orthostatic Lying] Blood Pressure [Orthostatic Sitting] Blood Pressure [Orthostatic Standing] Pulse Oximetry 100 MDM - Dizziness Lab Data Attestation: I reviewed the patient's lab results. Result diagrams: 01/20/21 22:50 01/20/21 22:50 Labs: Lab Results 01/20/21 01/20/21 01/20/21 Range/Units 22:50 22:50 22:50 WBC 6.9 (4.5-11.0) X10^3/uL RBC 4.42 (4.0-5.2) X10^6/uL Hgb 13.0 (12.0-16.0) g/dL Hct 39.1 (36-46) % MCV 88.5 (80-100) fL MCH 29.5 (26-34) PG MCHC 33.3 (30-36) % RDW 14.1 (11.6-14.8) % Plt Count 360 (150-400) X10^3/uL Neut % (Auto) 42.8 L (50-75) % Lymph % (Auto) 44.6 H (25-40) % [place] % (Auto) 8.3 (3-14) % Eos % (Auto) 3.5 (2-4) % Baso % (Auto) 0.8 (0-2) % Neut # (Auto) 3000 (2749-5780) /uL Lymph # (Auto) 3100 (2617-5750) /uL [place] # (Auto) 600 (0-900) /uL Eos # (Auto) 200 (0-450) /uL Baso # (Auto) 100 (0-100) /uL PT 11.7 (10.1-12.7) SECONDS INR 1.0 (0.9-1.3) APTT 29 (26.4-36.2) SECONDS Sodium 139 (137-145) mmol/L Potassium 3.9 (3.4-5.1) mmol/L Chloride 103 (98-107) mmol/L Carbon Dioxide 30 (22-32) mmol/L BUN 10 (7-17) mg/dL Creatinine 0.69 (0.52-1.04) mg/dL Estimated GFR > 60.0 (>60) mL/min BUN/Creatinine Ratio 14.5 (6-22) Glucose 97 (70-100) mg/dL Calcium 9.5 (8.4-10.2) mg/dL Total Bilirubin 0.3 (0.2-1.3) mg/dL AST 30 (14-36) IU/L ALT 36 H (<35) IU/L Alkaline Phosphatase 72 (38-126) U/L Total Creatine Kinase 171 H (30-135) U/L CK-MB (CK-2) 1.13 (<2.37) ng/mL CK-MB (CK-2) Rel Index 0.7 L (1.5-5.0) % Troponin I < 0.012 (0.01-0.034) ng/mL Total Protein 8.7 H (6.3-8.2) g/dL Albumin 4.4 (3.5-5.0) g/dL Globulin 4.3 H (1.7-4.1) g/dL Albumin/Globulin Ratio 1.0 (1.0-2.8) Lipase 92 (23-300) U/L SARS-CoV-2 (PCR) (Negative) 01/20/21 Range/Units 22:54 WBC (4.5-11.0) X10^3/uL RBC (4.0-5.2) X10^6/uL Hgb (12.0-16.0) g/dL Hct (36-46) % MCV (80-100) fL MCH (26-34) PG MCHC (30-36) % RDW (11.6-14.8) % Plt Count (150-400) X10^3/uL Neut % (Auto) (50-75) % Lymph % (Auto) (25-40) % [place] % (Auto) (3-14) % Eos % (Auto) (2-4) % Baso % (Auto) (0-2) % Neut # (Auto) (8455-0921) /uL Lymph # (Auto) (0118-7967) /uL [place] # (Auto) (0-900) /uL Eos # (Auto) (0-450) /uL Baso # (Auto) (0-100) /uL PT (10.1-12.7) SECONDS INR (0.9-1.3) APTT (26.4-36.2) SECONDS Sodium (137-145) mmol/L Potassium (3.4-5.1) mmol/L Chloride (98-107) mmol/L Carbon Dioxide (22-32) mmol/L BUN (7-17) mg/dL Creatinine (0.52-1.04) mg/dL Estimated GFR (>60) mL/min BUN/Creatinine Ratio (6-22) Glucose (70-100) mg/dL Calcium (8.4-10.2) mg/dL Total Bilirubin (0.2-1.3) mg/dL AST (14-36) IU/L ALT (<35) IU/L Alkaline Phosphatase (38-126) U/L Total Creatine Kinase (30-135) U/L CK-MB (CK-2) (<2.37) ng/mL CK-MB (CK-2) Rel Index (1.5-5.0) % Troponin I (0.01-0.034) ng/mL Total Protein (6.3-8.2) g/dL Albumin (3.5-5.0) g/dL Globulin (1.7-4.1) g/dL Albumin/Globulin Ratio (1.0-2.8) Lipase (23-300) U/L SARS-CoV-2 (PCR) Negative (Negative) Point of Care Testing Test Results Negative Urine Dip Bedside Urine Glucose Negative Bedside Urine Bilirubin - Negative Bedside Urine Ketone - Negative Urine Specific [place] 1.015 Bedside Urine Occult Blood - Negative Bedside Urine pH 7.5 Bedside Urine Protein - Negative Bedside Urine Urobilinogen - Negative Bedside Urine Nitrite - Negative Bedside Urine Leukocytes - Negative Esterase Imaging Data Chest x-ray: Radiologist's Impression: No acute disease in the chest. CT scan - head: Radiologist's Impression: No acute disease in the brain. ECG Data Attestation: I personally reviewed and interpreted this ECG as follows: Prior ECG tracings: available for review Interpretation: Sinus rhythm rate of 68 [place] 178 QRS of 94 and QTC of 408. Moderate criteria for LVH. Left axis deviation. Patient has a prior EKG from 07/03/2020 which appears similar. MDM Narrative Medical decision making narrative: 40 year old female wtih headache, lightheadedness and nausea and epigastric pain. Patient does have history of migraines but does not typically have same pattern of symptoms. No other acute cause found with negative head CT and CXR, EKG with no acute changes. Labs showed elevation lymphs but otherwise normal cbc, normal electrolytes, troponin, with CK at 171 and ALT 1 point over normal at 36. Patient does have elevated total protein and globulin. Head somewhat improved after Toradol and fluids. Dizziness improved per patient. Nausea resolved. Discussed no clear answer found today and recommend follow up with primary care, given options for follow up and return precautions. Discharge Plan Departure Patient Disposition: Home Clinical Impression: Lightheaded, Headache Instructions: DI for Dizziness-Nonvertigo Activity Restrictions/Additional Instructions: Follow up with your physician in the next 2-3 days or recheck. You may take Fioricet 1 tablet every 6 hours as needed for headache. Your labs, imaging and EKG do not show a clear cause of your symptoms today, if you continued to feel unwell please follow-up with your physician. If you feel like you are acutely worsening please return to the emergency department. Particularly for fevers greater 100.4 F, rapidly worsening or new headaches, passing out, persistent vomiting, black or bloody stools, rapidly worsening abdominal, flank pain, new chest pain or shortness of breath or other new or concerning symptoms. You can follow-up with [facility], [facility] or [facility] to establish with a primary care physician. Prescriptions: New sclmngbseg-cmpnuhctoknqe-mgfc [Fioricet] 50-300-40 mg capsule 1 cap PO Q6H PRN (Reason: pain) Qty: 10 RF: 0 No Action [ALBUTEROL SULFATE] QDAY Qty: 0 RF: 0 Stand Alone Forms: Work Release Note
[2021-01-20] MEDS: ONDANSETRON 4 MG/2 ML INJ IV (22:53)
[2021-01-20] MEDS: PANTOPRAZOLE 40 MG VIAL IV (22:53)
[2021-01-20] MEDS: SODIUM CHLORIDE 0.9% 1,000 ML 1000 ML IV (22:54)
[2021-01-20 22:55] LABS: Add Manual Diff / Slide Review NO; Basophils Absolute Auto 100 /uL (0-100); Basophils Percent Auto 0.8 % (0-2); Eosinophils Absolute Auto 200 /uL (0-450); Eosinophils Percent Auto 3.5 % (2-4); Hematocrit 39.1 % (36-46); Lymphocytes Absolute Auto 3100 /uL (1100-4500); Lymphocytes Percent Auto 44.6 % (25-40); Mean Corpuscular HGB Conc 33.3 % (30-36); Mean Corpuscular Hemoglobin 29.5 PG (26-34); Mean Corpuscular Volume 88.5 fL (80-100); Monocytes Absolute Auto 600 /uL (0-900); Monocytes Percent Auto 8.3 % (3-14); Neutrophils Absolute Auto 3000 /uL (1500-7000); Neutrophils Percent Auto 42.8 % (50-75); Platelet Count 360 X10^3/uL (150-400); Red Blood Cell Count 4.42 X10^6/uL (4.0-5.2); Red Cell Distribution Width 14.1 % (11.6-14.8); White Blood Cell Count 6.9 X10^3/uL (4.5-11.0)
[2021-01-20 23:02] VITALS: BP 155/83
[2021-01-20 23:04] LABS: Prothrombin Time 11.7 SECONDS (10.1-12.7)
[2021-01-20 23:06] LABS: PTT Partial Thromboplastin Tim 29 SECONDS (26.4-36.2)
[2021-01-20 23:09] LABS: Alanine Aminotransferase 36 IU/L (<35); Albumin 4.4 g/dL (3.5-5.0); Alkaline Phosphatase 72 U/L (38-126); Aspartate Aminotransferase 30 IU/L (14-36); BUN Creatinine Ratio 14.5 (6-22); Bilirubin Total 0.3 mg/dL (0.2-1.3); Blood Urea Nitrogen 10 mg/dL (7-17); Calcium 9.5 mg/dL (8.4-10.2); Carbon Dioxide 30 mmol/L (22-32); Chloride 103 mmol/L (98-107); Creatine Kinase 171 U/L (30-135); Estimated Glomerular Filt Rate > 60.0 mL/min (>60); Globulin 4.3 g/dL (1.7-4.1); Glucose 97 mg/dL (70-100); HEMOLYSIS < 15 (0-50); Lipase 92 U/L (23-300); Potassium 3.9 mmol/L (3.4-5.1); Sodium 139 mmol/L (137-145); Total Protein 8.7 g/dL (6.3-8.2)
[2021-01-20 23:15] VITALS: BP 131/69; BP 133/73; BP 145/84; PULSE 66; PULSE 70; PULSE 71
[2021-01-20 23:20] LABS: Troponin I < 0.012 ng/mL (0.01-0.034)
[2021-01-20 23:23] LABS: COVID19 -Nasal RAPID Negative (Negative)
[2021-01-20 23:24] LABS: CKMB % Relative Index 0.7 % (1.5-5.0); Creatine Kinase MB 1.13 ng/mL (<2.37)
[2021-01-20 23:31] VITALS: BP 168/70; PULSE 65; RESP 18; O2SAT 98
--- NOTE | 2021-01-20 23:54 | DI.CT.S_ITS ---
PROCEDURE: CT HEAD/BRAIN WO CON INDICATIONS: headache, hx migraines but different pattern TECHNIQUE: Noncontrast 4.5 mm thick angled axial sections acquired from the foramen magnum to the vertex, with coronal and sagittal reformats. For radiation dose reduction, the following was used: automated exposure control, adjustment of mA and/or kV according to patient size. COMPARISON: None. FINDINGS: Image quality: Excellent. CSF spaces: Basal cisterns are patent. No extra-axial fluid collections. Ventricles are normal in size and shape. Brain: No midline shift. No intracranial masses or hemorrhage. Hwang-white matter interface is normal. Skull and face: Calvarium and visualized facial bones are intact, without suspicious lesions. Sinuses: Visualized sinuses and mastoids are clear. IMPRESSION: No acute intracranial abnormality. No significant discrepancy with the night club manager radiology preliminary report. Dictated by: Heriberto Hopper M.D. on 01/21/2021 at 7:49 Approved by: Heriberto Hopper M.D. on 01/21/2021 at 7:50
[2021-01-21 00:01] VITALS: BP 114/66; PULSE 64; RESP 16; O2SAT 98
[2021-01-21] MEDS: KETOROLAC 60 MG/2 ML VIAL 30 MG IV (00:01)
[2021-01-21 00:33] VITALS: BP 130/79; PULSE 59; RESP 14; O2SAT 100
[2021-01-21] MEDS: ACETAMINOPHEN 325 MG TABLET 975 MG PO (01:11)
[2021-01-21 01:16] VITALS: BP 136/75; PULSE 60; RESP 18; O2SAT 100
== END 2021-01-21 01:17 | disposition home or self-care (01) ==
PROVIDERS: Emergency Provider Emergency Medicine
DX: R42 Dizziness and giddiness (principal); R51.9 Headache, unspecified; R10.13 Epigastric pain; R11.0 Nausea; J45.909 Unspecified asthma, uncomplicated; Z20.822 Contact with and (suspected) exposure to COVID-19
CPT/HCPCS: 36415; 70450; 71045; 80053; 81003; 81025; 82550; 82553; 83690; 84484; 85025; 85610; 85730; 87635; 93005; 96361; 96374; 96375; 99284; C9803; C9113; J1885; J2405

== ENCOUNTER → 2021-01-31 15:04 | Outpatient (CLI) | payer OTHER, SELFPAY ==
[2021-01-31 15:53] LABS: Add Manual Diff / Slide Review NO; Basophils Absolute Auto 0 /uL (0-100); Basophils Percent Auto 0.8 % (0-2); Eosinophils Absolute Auto 200 /uL (0-450); Eosinophils Percent Auto 3.3 % (2-4); Hematocrit 39.6 % (36-46); Hemoglobin 13.2 g/dL (12.0-16.0); Lymphocytes Absolute Auto 3300 /uL (1100-4500); Lymphocytes Percent Auto 52.4 % (25-40); Mean Corpuscular HGB Conc 33.3 % (30-36); Mean Corpuscular Hemoglobin 29.7 PG (26-34); Mean Corpuscular Volume 89.2 fL (80-100); Monocytes Absolute Auto 600 /uL (0-900); Monocytes Percent Auto 8.8 % (3-14); Neutrophils Absolute Auto 2200 /uL (1500-7000); Neutrophils Percent Auto 34.7 % (50-75); Platelet Count 312 X10^3/uL (150-400); Red Blood Cell Count 4.44 X10^6/uL (4.0-5.2); Red Cell Distribution Width 13.8 % (11.6-14.8); White Blood Cell Count 6.3 X10^3/uL (4.5-11.0)
[2021-01-31 16:03] LABS: Pregnancy Test Urine Negative (Negative)
[2021-01-31 16:31] LABS: Alanine Aminotransferase 25 IU/L (<35); Albumin 4.8 g/dL (3.5-5.0); Albumin Globulin Ratio 1.2 (1.0-2.8); Alkaline Phosphatase 71 U/L (38-126); Aspartate Aminotransferase 24 IU/L (14-36); BUN Creatinine Ratio 11.5 (6-22); Bilirubin Total 0.4 mg/dL (0.2-1.3); Blood Urea Nitrogen 7 mg/dL (7-17); Calcium 9.9 mg/dL (8.4-10.2); Carbon Dioxide 30 mmol/L (22-32); Chloride 101 mmol/L (98-107); Estimated Glomerular Filt Rate > 60.0 mL/min (>60); Globulin 3.9 g/dL (1.7-4.1); Glucose 80 mg/dL (70-100); HEMOLYSIS < 15 (0-50); Lipase 81 U/L (23-300); Potassium 3.8 mmol/L (3.4-5.1); Sodium 139 mmol/L (137-145); Total Protein 8.7 g/dL (6.3-8.2)
[2021-02-05 13:04] LABS: Urea Breath Test >18YRS NEGATIVE
== END ==
PROVIDERS: PCP Registered Nurse; Referring Provider Registered Nurse; Visit Provider Registered Nurse
DX: R10.9 Unspecified abdominal pain (principal); R11.0 Nausea
CPT/HCPCS: 36415; 80053; 81025; 83013; 83690; 85025

== ENCOUNTER → 2021-02-11 15:55 | Outpatient (CLI) | payer OTHER, SELFPAY ==
--- NOTE | 2021-02-11 15:56 | DI.US.S_ITS ---
PROCEDURE: US ABDOMEN COMPLETE INDICATIONS: ABDOMINAL PAIN TECHNIQUE: Real-time scanning was performed of the abdominal and retroperitoneal organs, with image documentation. COMPARISON: [facility], US, ABDOMEN COMPLETE, 01/04/2013, 11:49. FINDINGS: Liver: Liver is normal in size and homogeneous in echotexture. The main portal vein demonstrates normal size and demonstrates normal appearing, hepatopetal flow. Gallbladder: No findings of gallstones or sludge are seen. The gallbladder wall is not thickened, measuring 3 mm or less. No specific pericholecystic fluid is seen. The sonographic Christianson sign is negative. Biliary ducts: Intrahepatic bile ducts are non-dilated. Extrahepatic bile duct caliber measures 4-5 mm. Normal is 6-7 mm or less in diameter, or 10 mm or less post-cholecystectomy. Pancreas: Visualized portions of the pancreas are sonographically normal. Spleen: Spleen is normal in size and homogeneous in echotexture. Kidneys: Kidneys are normal in size and echotexture. Right kidney measures 9.9 cm long; left kidney measures 10 cm long. No nephrolithiasis. No solid masses. There is no juan jose hydronephrosis. There is trace left kidney pelviectasis. Aorta: Visualized aorta is normal in caliber at less than 3 cm. Iliacs: Proximal common iliac arteries are normal in caliber at less than 2.5 cm. IVC: Intrahepatic inferior vena cava is patent. Miscellaneous: No free abdominal fluid. This study is limited by body habitus. IMPRESSION: The gallbladder demonstrates a normal sonographic appearance. No biliary dilatation is seen. Trace left kidney pelviectasis, without juan jose hydronephrosis. Dictated by: Denny Jorge M.D. on 02/11/2021 at 16:03 Approved by: Denny Jorge M.D. on 02/11/2021 at 16:04
== END ==
PROVIDERS: PCP Registered Nurse; Referring Provider Registered Nurse; Visit Provider Registered Nurse
DX: R10.9 Unspecified abdominal pain (principal)
CPT/HCPCS: 76700

== ENCOUNTER → 2021-06-26 11:22 | Outpatient (CLI) | payer OTHER, SELFPAY | PROVIDERS: PCP Registered Nurse; Visit Provider Physician Assistant | DX: J31.2 Chronic pharyngitis (principal) | CPT/HCPCS: 87070; 87077; 87147 ==

== ENCOUNTER → 2021-07-05 13:54 | Outpatient (CLI) | payer OTHER, SELFPAY ==
--- NOTE | 2021-07-05 13:56 | DI.RAD.S_ITS ---
PROCEDURE: XR CHEST 2V INDICATIONS: sob TECHNIQUE: 2 views of the chest were acquired. COMPARISON: [facility], CR, XR CHEST 1V, 01/20/2021, 22:20. [facility], CR, XR CHEST 2V, 07/03/2020, 16:08. FINDINGS: Surgical changes and devices: None. Lungs and pleura: Lungs are clear. No pleural effusions or pneumothorax. Mediastinum: Mediastinal contours are normal. Heart size is normal. Bones and chest wall: No suspicious bony abnormalities. Soft tissues appear unremarkable. IMPRESSION: Expiratory chest demonstrating no acute cardiopulmonary disease. Dictated by: Michael Vargas [facility] Interpreted: Keshia Bauman MD on 07/05/2021 at 14:08 Transcribed by: SHRUTHI on 07/05/2021 at 14:08 Approved by: Keshia Bauman M.D. on 07/05/2021 at 14:29
== END ==
PROVIDERS: PCP Registered Nurse; Referring Provider Registered Nurse; Visit Provider Registered Nurse
DX: R06.02 Shortness of breath (principal)
CPT/HCPCS: 71046

== ENCOUNTER → 2021-09-18 15:59 | Outpatient (CLI) | payer OTHER, SELFPAY ==
--- NOTE | 2021-09-18 16:00 | DI.US.S_ITS ---
PROCEDURE: US OB <= 14 WEEKS FETUS INDICATIONS: SIZE AND DATES OUTSIDE/PRIOR DATING DATA: First dating scan (date and location): [facility]; September 18, 2021. Estimated date of delivery (LAURIE) from first dating scan: April 27, 2022. TECHNIQUE: Real-time scanning was performed of the fetus and maternal pelvic organs, with image documentation. Endovaginal scanning was also performed to better visualize the fetus and maternal ovaries. COMPARISON: None. FINDINGS: Embryo: The crown-rump length measures 1.9 cm, compatible with an 8 week, 3 day gestation. Heart rate: 175 beats per minute Measurement variability in dating: +/- 4 weeks by LMP, +/- 7 days by mean sac diameter (use before 6 weeks gestation if crown-rump length not able to be measured), +/- 5 days by crown-rump length (up to 8 weeks 6 days gestation), +/- 7 days by crown-rump length (up to 13 weeks 6 days gestation). Maternal organs: A thick-walled lesion is seen in the right ovary, measuring 3.3 x 1.6 cm, likely reflecting a corpus luteum. The left ovary is not well seen. IMPRESSION: Live single intrauterine gestation as detailed above. Dictated by: Santana Guerin M.D. on 09/18/2021 at 16:59 Approved by: Santana Guerin M.D. on 09/18/2021 at 17:02
== END ==
PROVIDERS: PCP Registered Nurse; Referring Provider Student in an Organized Health Care Education/Training Program; Visit Provider Student in an Organized Health Care Education/Training Program
DX: Z34.81 Encounter for supervision of other normal pregnancy, first trimester (principal); Z3A.08 8 weeks gestation of pregnancy
CPT/HCPCS: 76801; 76817

== ENCOUNTER → 2021-11-13 15:51 | Outpatient (CLI) | payer OTHER, SELFPAY ==
--- NOTE | 2021-11-13 | DI.US.S_ITS ---
PROCEDURE: US OB LIMITED INDICATIONS: VIABILITY OUTSIDE/PRIOR DATING DATA: First dating scan (date and location): 09/18/2021 at [facility] Estimated date of delivery (LAURIE) from first dating scan: 04/27/2022 The calculations are made using the ultrasound LAURIE of 04/27/2022. TECHNIQUE: Real-time scanning was performed of the fetus, with image documentation. Endovaginal scanning: Not performed. COMPARISON: [facility], US, US OB <= 14 WEEKS FETUS, 09/18/2021, 16:10. FINDINGS: A single living intrauterine gestation is present. Presentation: Breech Placenta: Placental position is posterior . The lower placental margin is approximately 0.4 cm from the internal cervical os. Amniotic fluid index: 11.2 cm, normal range is 5-24 cm. Single deepest vertical pocket is 3.3 cm. heart rate: 147 beats per minute. Maternal cervical canal: 7.2 cm long. Normal lower limit is 2.5 cm. Estimated gestational age from initial scan: 16 weeks 3 days IMPRESSION: 1. Single live intrauterine . 2. Normal amniotic fluid index. 3. Marginal placental previa, with lower placental margin approximately 0.4 cm from the internal cervical os. Recommend attention on follow-up exams. Dictated by: Luis Espino M.D. on 11/13/2021 at 17:06 Approved by: Luis Espino M.D. on 11/13/2021 at 17:10
--- NOTE | 2021-11-13 | DI.US.S_ITS ---
PROCEDURE: US ABDOMEN LIMITED INDICATIONS: RUQ PAIN TECHNIQUE: Real-time focused scanning was performed of the abdomen, with image documentation. COMPARISON: [facility], US, US ABDOMEN COMPLETE, 02/11/2021, 16:22. FINDINGS: Gallbladder wall is contracted. No stones. No gallbladder wall thickening. No pain noted on exam. No dilated ducts. Common hepatic duct measures 1.3 mm. Common bile duct measures 3.0 mm. Visualized portions of the pancreas are unremarkable. Liver has a normal echo pattern. IMPRESSION: Unremarkable right upper quadrant ultrasound. No fatty change in the liver. No gallstone disease noted. Dictated by: Pepe Alfaro M.D. on 11/13/2021 at 17:07 Approved by: Pepe Alfaro M.D. on 11/13/2021 at 17:08
== END ==
PROVIDERS: PCP Registered Nurse; Referring Provider Student in an Organized Health Care Education/Training Program; Visit Provider Student in an Organized Health Care Education/Training Program
DX: O99.891 Other specified diseases and conditions complicating pregnancy (principal); O36.80X0 Pregnancy with inconclusive fetal viability, not applicable or unspecified; O44.22 Partial placenta previa NOS or without hemorrhage, second trimester; R10.11 Right upper quadrant pain; Z3A.16 16 weeks gestation of pregnancy
CPT/HCPCS: 76705; 76815; 76817

== ENCOUNTER → 2022-01-02 10:25 | Outpatient (CLI) | payer OTHER, SELFPAY ==
--- NOTE | 2022-01-02 | DI.US.S_ITS ---
PROCEDURE: US OB >= 14 WEEKS FETUS INDICATIONS: 20 WEEK ANATOMY SCAN OUTSIDE/PRIOR DATING DATA: Last menstrual period (LMP): Unknown. LMP-based estimated date of delivery (LAURIE): Unknown. First dating scan (date and location): 09/18/2021. Estimated date of delivery (LAURIE) from first dating scan: 04/27/2022. TECHNIQUE: Real-time scanning was performed of the fetus, with image documentation and biometric measurements. COMPARISON: None. FINDINGS: General: A single living intrauterine gestation is present. Presentation: Transverse. Placenta: Placental position is posterior , without previa. Amniotic fluid index: 12.4 cm, normal range is 5-24 cm. heart rate: 153 beats per minute. Maternal cervical canal: 7.8 cm long. Normal lower limit is 2.5 cm. biometrics: Biparietal diameter: 5.5 cm, 22 week 6 day Head circumference: 21.9 cm, 23 week 6 day Abdominal circumference: 19.8 cm, 24 week 3 day Femur length: 4.6 cm, 25 week 3 day Clinically estimated gestational age: 23 week 4 day Composite gestational age from present scan: 24 week 1 day Estimated weight and percentile: 718 g, 88 percentile Anatomic survey: Neuro: Not well visualized Nuchal skin fold: Not well visualized Face: Nose and lips, facial profile are normal. Spine: No evidence for spina bifida. Heart: 4-chambered heart is present, with normal ventricular outflow tracts. Diaphragm: Diaphragm is intact. Stomach: Left-sided stomach is present. Kidneys: No hydronephrosis. Normal is less than 5 mm in 2nd trimester, less than 7 mm in 3rd trimester. Cord: 3-vessel cord . Cord insertion not well visualized Bladder: Normal in size. Extremities: All 4 extremities identified. IMPRESSION: 1. Single live intrauterine consistent with a 24 week 1 day gestation by current ultrasound 2. Suboptimal anatomy evaluation due to lie and patient body habitus Approved by: Moiz Fuentes M.D. on 01/02/2022 at 14:10
== END ==
PROVIDERS: PCP Registered Nurse; Referring Provider Student in an Organized Health Care Education/Training Program; Visit Provider Student in an Organized Health Care Education/Training Program
DX: Z36.89 Encounter for other specified antenatal screening (principal); Z3A.24 24 weeks gestation of pregnancy
CPT/HCPCS: 76811

== ENCOUNTER → 2022-02-20 09:19 | Outpatient (CLI) | payer OTHER, SELFPAY ==
[2022-02-20 10:27] LABS: Add Manual Diff / Slide Review NO; Basophils Absolute Auto 0 /uL (0-100); Basophils Percent Auto 0.5 % (0-2); Eosinophils Absolute Auto 200 /uL (0-450); Hematocrit 33.1 % (36-46); Hemoglobin 11.2 g/dL (12.0-16.0); Lymphocytes Absolute Auto 2000 /uL (1100-4500); Mean Corpuscular Hemoglobin 30.3 PG (26-34); Mean Corpuscular Volume 89.1 fL (80-100); Monocytes Absolute Auto 700 /uL (0-900); Monocytes Percent Auto 8.6 % (3-14); Neutrophils Absolute Auto 5100 /uL (1500-7000); Neutrophils Percent Auto 63.9 % (50-75); Platelet Count 286 X10^3/uL (150-400); Red Blood Cell Count 3.71 X10^6/uL (4.0-5.2); Red Cell Distribution Width 13.4 % (11.6-14.8)
[2022-02-20 12:24] LABS: GTT (PREG) 1 Hour PP 50gm Dose 186 mg/dL (76-139)
== END ==
PROVIDERS: Referring Provider Student in an Organized Health Care Education/Training Program; Visit Provider Student in an Organized Health Care Education/Training Program
DX: Z34.80 Encounter for supervision of other normal pregnancy, unspecified trimester (principal)
CPT/HCPCS: 36415; 82950; 85025

== ENCOUNTER → 2022-03-03 13:24 | Outpatient (CLI) | payer OTHER, SELFPAY ==
--- NOTE | 2022-03-03 15:21 | DIAB.GDA ---
Initial Gestational Diabetes Assessment Name: Natalee Miles Date: 03/03/22 Time: 130-3p Dx: Gestational Diabetes Provider: Polo LAURIE: 04/27/22 (reported) Weeks: 32-33 (reported) Nuzhat presents for initial visit regarding newly dx GDM. Reports doing some research on her own regarding the diagnosis. Seems confused about why she was diagnosed and has questions about BG goals. Overall, has made good lifestyle changes. Though her family are pretty healthy eaters to begin with, she has cut out all sweetened beverages, reduced rice portions, and been careful of fruit portions. No PMH of GDM or prediabetes reported. +Fh of Dm with both maternal grandparents, her mom with prediabetes on Metformin. Nuzhat recently started maternity leave two weeks ago. 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 This was a very active physical job per report. Diet Recall: 8a: eng muffin with eggs and veg (30g CHO) 10a: nuts ; cheese ; wheat thins (0-15g CHO) 1p: protein with salad and fruit ; sandwich with fruit (15-45g CHO) 3p: apple ;cheese (0-15g CHO) 6p: protein, rice and veg (20-45g CHO) Beverages: water x 3.5L Anthropometrics: Ht: 64 Wt: 262.6# today Prepregnancy wt: 235# reported Wt changes: +7.6# for duration of (-3# since last OB visit 02/26-- seems likely r/t diet changes made recently) Physical Activity: Walks with 3 days per week for 30 mins. Reports reduction in activity since going on leave from work. Self-Monitoring Blood Glucose: 3/3 elevated fastings and 2/3 elevated pc breakfast. Difficult to determine some readings since they are in the 130s and at 1.5hr. Discussed checking at 1hr as provider rec and only at 2hr if the 1hr time is missed. 1/3 elevated lunch pc. 1 elevated of 2 dinner pc. Based on fastings Nuzhat may benefit from medication management. She does not appear to be over eating carbs. Physical activity could improve, but given her FBG, seems mostly hormone based hyperglycemia. She plans to see provider this week. Briefly discussed her feelings if provider recs medication management. She reports its a lot. She asked what medications are given for hyperglycemia. Did not want to overwhelm her, so we discussed in brief. She did seem a little tearful. She has a good understanding of the role of hormones in GDM and understanding this is not her fault. Date Pre Post Pre Post Pre Post HS 4/ 97 122 1h 132 1.5h 143 2h 4/3 107 140 1.5h 94 1.5h 130 1.5h /4 102 132 1.5h 132 1.5h Diabetes Medications: None Pertinent Labs: OGTT 98H 198H 207H 138 Nutrition Rx: Carbohydrates: Daily: 180-210g Meal: 45-g lunch and dinner; 30g breakfast Snack: 15-30g Nutrition Diagnosis: Altered nutrition related lab value r/t GDM dx aeb recent OGTT Physical inactivity r/t dec in activity with maternity leave aeb pt report Intervention: This participant was very receptive. Provided appropriate educational handouts. Discussed the following topics: GDM pathophysiology and impact of hyperglycemia on mom and baby Reviewed OGTT Plate Method, meal timing, carb counting, pairing macronutrients and spreading out CHO for better BG management Blood glucose goals (FBG: <95 and 1 hour <140 mg/dL; 2 hr <120 prn) Impact of macronutrients on blood glucose Recommended servings for carbohydrates at meals and snacks Brainstormed appropriate meal plan based on her food preferences Role of physical activity and following provider guidelines for safety Briefly discussed her feelings on if medication is indicated. Very briefly reviewed types of DM meds provided during . Goals: Balance meals and snacks with pro/carb combos- new Walk safely 4 days per week- new Check fasting and 1hr pc (2hr if missed 1hr)- new Follow-up: MODESTA HERNADEZ follow-up in one week Aide Stewart RDN, SATYA Certified Diabetes Care and Tie Knitter Helper T: [phone] F: [phone] [email or web address] Thank you for this referral
== END ==
PROVIDERS: Referring Provider Student in an Organized Health Care Education/Training Program; Visit Provider Student in an Organized Health Care Education/Training Program
DX: O24.419 Gestational diabetes mellitus in pregnancy, unspecified control (principal); Z3A.32 32 weeks gestation of pregnancy; Z71.3 Dietary counseling and surveillance
CPT/HCPCS: 97802

== ENCOUNTER 2022-03-05 11:58 | Observation (INO) | payer OTHER, SELFPAY ==
--- NOTE | 2022-03-05 12:42 | DI.US.S_ITS ---
PROCEDURE: US OB BIOPHYSICAL PROFILE INDICATIONS: had a late decel with ctx OUTSIDE/PRIOR DATING DATA: Last menstrual period (LMP): Not known LMP-based estimated date of delivery (LAURIE): Not applicable First dating scan (date and location): September 18, 2021 Estimated date of delivery (LAURIE) from first dating scan: April 27, 2022 The calculations are made using the ultrasound LAURIE of September 27, 2022 TECHNIQUE: Real-time scanning was performed of the fetus for biophysical profile, with image documentation. . Endovaginal scanning: Performed COMPARISON: [facility], US, US OB LIMITED, 03/04/2022, 11:34. [facility] Ultrasound, US, US OB GROWTH, 02/12/2022, 11:17. [facility], US, US OB >= 14 WEEKS FETUS, 01/02/2022, 10:59. [facility], , US OB LIMITED, 11/13/2021, 16:31. [facility], US, US ABDOMEN LIMITED, 11/13/2021, 16:25. [facility], US, US OB <= 14 WEEKS FETUS, 09/18/2021, 16:10. FINDINGS: General: A single living intrauterine gestation is present. Presentation: Cephalic Placenta: Placental position is posterior, without previa. Amniotic fluid index: 12.9 cm, normal range is 5-24 cm. Single deepest vertical pocket is 5.6 cm. heart rate: 147 beats per minute. Maternal cervical canal: Closed and 4.8 cm long. Normal lower limit is 2.5 cm. Clinically estimated gestational age: Not applicable Estimated gestational age from initial scan: 32 weeks 3 days Biophysical profile: Tone: 2 points. Movement: 2 points. Respiration: 2 points. Largest pocket of fluid: 2 points. IMPRESSION: 1. Single living intrauterine . 2. Normal amniotic fluid index. 3. Biophysical profile score 8/8. Dictated by: Mary Jo Mccrary MD, PhD on 03/05/2022 at 13:28 Approved by: Mary Jo Mccrary MD, PhD on 03/05/2022 at 13:30
[2022-03-05 13:11] LABS: Add Manual Diff / Slide Review NO; Basophils Absolute Auto 100 /uL (0-100); Basophils Percent Auto 0.7 % (0-2); Eosinophils Absolute Auto 100 /uL (0-450); Eosinophils Percent Auto 1.9 % (2-4); Hematocrit 32.7 % (36-46); Hemoglobin 11.2 g/dL (12.0-16.0); Lymphocytes Absolute Auto 2200 /uL (1100-4500); Lymphocytes Percent Auto 29.2 % (25-40); Mean Corpuscular HGB Conc 34.2 % (30-36); Mean Corpuscular Hemoglobin 30.2 PG (26-34); Mean Corpuscular Volume 88.4 fL (80-100); Monocytes Absolute Auto 800 /uL (0-900); Monocytes Percent Auto 10.2 % (3-14); Neutrophils Absolute Auto 4300 /uL (1500-7000); Platelet Count 305 X10^3/uL (150-400); Red Cell Distribution Width 13.5 % (11.6-14.8); White Blood Cell Count 7.4 X10^3/uL (4.5-11.0)
[2022-03-05 13:21] LABS: Alanine Aminotransferase 16 IU/L (<35); Albumin 3.9 g/dL (3.5-5.0); Albumin Globulin Ratio 0.9 (1.0-2.8); Alkaline Phosphatase 78 U/L (38-126); Aspartate Aminotransferase 23 IU/L (14-36); BUN Creatinine Ratio 10.4 (6-22); Bilirubin Total 0.3 mg/dL (0.2-1.3); Blood Urea Nitrogen 5 mg/dL (7-17); Calcium 9.2 mg/dL (8.4-10.2); Carbon Dioxide 23 mmol/L (22-32); Chloride 104 mmol/L (98-107); Estimated Glomerular Filt Rate > 60.0 mL/min (>60); Globulin 4.2 g/dL (1.7-4.1); Glucose 89 mg/dL (70-100); HEMOLYSIS < 15 (0-50); Potassium 3.9 mmol/L (3.4-5.1); Sodium 136 mmol/L (137-145); Total Protein 8.1 g/dL (6.3-8.2)
[2022-03-05 13:39] LABS: Appearance Urine UA CLEAR; Bilirubin Urine UA NEGATIVE (NEGATIVE); Color Urine UA YELLOW; Glucose Urine UA NEGATIVE (Negative); Ketones Urine UA NEGATIVE (NEGATIVE); Leukocyte Esterase Urine UA TRACE (NEGATIVE); Nitrite Urine UA NEGATIVE (Negative); Occult Blood Urine UA NEGATIVE (Negative); Protein Urine UA NEGATIVE (Negative); Urobilinogen Urine UA 0.2 E.U./dL (0.2); pH Urine UA 7.5 (4.5-8.0)
[2022-03-05 13:45] LABS: Bacteria Urine None Seen; Culture Indicated Urine Cult Not Indicated; RBC Urine None Seen (0-5/HPF); Urine Comments Microscopic Normal; WBC Urine None Seen (0-5/HPF)
== END 2022-03-05 14:20 | disposition home or self-care (01) ==
PROVIDERS: Admitting Provider Student in an Organized Health Care Education/Training Program; Referring Provider Student in an Organized Health Care Education/Training Program; Visit Provider Student in an Organized Health Care Education/Training Program
DX: O24.419 Gestational diabetes mellitus in pregnancy, unspecified control (principal); O47.03 False labor before 37 completed weeks of gestation, third trimester; O09.523 Supervision of elderly multigravida, third trimester; Z3A.32 32 weeks gestation of pregnancy
CPT/HCPCS: 36415; 59025; 76819; 80053; 81001; 85025; G0378; G0379

== ENCOUNTER 2022-03-10 09:36 | Outpatient (CLI) | payer OTHER, SELFPAY | END 2022-03-10 10:45 | disposition home or self-care (01) | LOC: OB 03-11 15:14 | PROVIDERS: Referring Provider Student in an Organized Health Care Education/Training Program; Visit Provider Student in an Organized Health Care Education/Training Program | DX: O24.419 Gestational diabetes mellitus in pregnancy, unspecified control (principal); Z3A.33 33 weeks gestation of pregnancy | CPT/HCPCS: 59025; G0378; G0379 ==

== ENCOUNTER 2022-03-12 11:19 | Outpatient (CLI) | payer OTHER, SELFPAY ==
--- NOTE | 2022-03-12 12:20 | PM.OBTRLD ---
Visit Information Visit Information Date of evaluation: 03/12/22 Primary OB Provider: Talia Cuellar On-call OB Provider: Emilie Miller Reason for Evaluation: Yes non-stress test Comments/Additional reasons for admission: Patient came in for evaluation because she had lower pelvic discomfort starting last night with increased pelvic pressure. No vaginal bleeding. May be some mucus discharge this morning. No constipation or diarrhea. No increased frequency or pain with urination. Good movement. Vital Signs Vital Signs: Blood pressure 125/71, pulse of 90, temperature 35.7? [facility] Medical History (Updated 03/12/22 @ 12:35 by Emilie Miller MD) Asthma Cornea transplant recipient Respiratory infection SOB (shortness of breath) Social History Smoking Status: Never smoker Exam Narrative Exam Narrative: Abdomen is soft, nontender. Uterus is soft, nontender. Evaluation Evaluation Baseline heart rate: 135 Variability: Moderate (11-25) monitor accelerations: Present Monitor Decelerations: Absent Contraction Frequency (minutes): 0 Cervical dilation (cm): 0 Cervical effacement (%): 0 station: -4 Comments: Ultrasound reveals vertex fetus head not engaged. Diagnosis, Plan/Disposition Final Diagnosis (1) Pelvic pressure in , antepartum: Status: Acute (2) 33 weeks gestation of : Status: Acute Plan/Disposition Plan: Patient with pelvic pressure came in for reassurance of no labor. Patient is reassured that there are no contractions on the monitor and the cervix is unchanged with the head out of the pelvis. Patient will keep her routine follow-up appointment with her primary OB provider OB Disposition: home
== END 2022-03-12 12:35 | disposition home or self-care (01) ==
LOC: LABOR 11:46 → OB 03-24 09:23
PROVIDERS: Referring Provider Student in an Organized Health Care Education/Training Program; Visit Provider Student in an Organized Health Care Education/Training Program
DX: O26.893 Other specified pregnancy related conditions, third trimester (principal); R10.2 Pelvic and perineal pain; Z3A.33 33 weeks gestation of pregnancy
CPT/HCPCS: 59025; G0378; G0379

== ENCOUNTER → 2022-03-13 11:06 | Outpatient (CLI) | payer OTHER, SELFPAY ==
--- NOTE | 2022-03-13 11:09 | DIAB.GDFU ---
Follow-up Gestational Diabetes Assessment Name: Natalee Miles Date: 03/13/22 Time: 617-867m Dx: Gestational Diabetes Provider: Polo LAURIE: 04/27/22 (reported) Weeks: 33-34 (reported) Nuzhat presents for telehealth follow-up via [employer] platform. Reports good diet adherence and increased exercise. Continues to have hyperglycemia, especially fasting. Sees provider again on 03/20/22. States OB wanted to wait on medications at last visit. Nuzhat does seem down about BG. Reports feeling frustrated that no matter what she eats her BG are elevated. Recent diet recall indicates most meals are in range of recs. Sometimes breakfast is higher carb. Diet Recall: B: fruit and eng muffin OR two turkey reed, egg, and ww thin toast x 2, +/- cheese (30-45g CHO) Sn: cashews and almonds with small orange, small 4-5 wheat thins (15-30g CHO) L: [place] sandwich with fruit and unsweet tea OR salad with protein and half croissant (30-45g CHO) Sn: cheese with 5 PB crackers (15-20g CHO) D: ww pasta x 1c white sauce, veg, grilled chx or grilled shrimp, brown rice x 1/2c, veggies (20-45g CHO) Beverages: water or zero kcal beverages Eating out freq increased due to appointments and sometimes sees higher BG from eating out reportedly, though most eating out choices seem low carb per report. Tries to choose sandwiches and salads. Grilled salad: 7g CHO Grilled sandwich with sf soda: 35g CHO Anthropometrics: No measurements today given nature of telehealth visit. Ht: 64 Wt: 262.6# last visit Prepregnancy wt: 235# reported Physical Activity: Reports increased walking. Walking BID x 20-30 min each for five days per week. Self-Monitoring Blood Glucose: Last snack is at 930pm and checking fasting 730a. Fasting for 10 hours overnight and cont with consistent hyperglycemia in the morning. Great adherence to checking FBG and 1hr pc. All FBG >95. 3/10 elevated pc breakfast, 4/9 elevated pc lunch, and 6/10 elevated pc dinner. One especially high dinner reading was 03/08 dinner r/t juice intake seemingly: Romanian chx veg, brown rice x 1/2c, 1/2c juice Based on her usual reported intake, increased physical activity, and appropriate fasting, it seems she may benefit from medication management. Hyperglycemia in the morning seems hormone related. Seems she will discuss this further with her OB next week. She seemed concerned, so I did encourage her to call her OB sooner if she feels worried. She agreed. 03/03 129 4/5 103 142 2hr 132 141 4/6 109 145 137 146 /7 108 137 122 123 /8 108 125 124 137 /9 111 129 148 179 03/09 107 142 158 123 03/10 107 129 166 150 03/11 112 126 161 167 03/12 101 124 130 156 03/13 109 123 Diabetes Medications: None Pertinent Labs: OGTT 98H 198H 207H 138 Nutrition Rx: Carbohydrates: Daily: 180-210g Meal: 45-g lunch and dinner; 30g breakfast Snack: 15-30g Nutrition Diagnosis: Altered nutrition related lab value r/t GDM dx aeb recent OGTT Physical inactivity r/t dec in activity with maternity leave aeb pt report- improved Excessive carb intake r/t nutrition knowledge deficit aeb diet recall indicating some breakfasts with fruit and bread or adding juice to Romanian dinner. Intervention: This participant was very receptive. Provided appropriate educational handouts. Discussed the following topics: Recent blood sugar results and impact of food and hormones Review of macronutrient recommendations during Physical activity plan and progress Impact of hormones on FBG Potential medication options Reviewed eating out nutrition info Affirming that she is doing all she can do to keep her baby healthy Goals: Balance meals and snacks with pro/carb combos- met Walk safely 4 days per week- met Check fasting and 1hr pc (2hr if missed 1hr)- met Avoid juice- new Keep breakfast carbs to 30g (ie fruit and half eng muffin or just eng muffin)- new Continue walking safely 5 days per week- new Follow-up: MODESTA HERNADEZ follow-up in one week. She opted for virtual again given the number of appts she has. Encouraged her to change this to in-person prn. She agreed. Aide Stewart RDN, SATYA Certified Diabetes Care and Account Consultant T: [phone] F: [phone] [email or web address] Thank you for this referral
== END ==
PROVIDERS: Referring Provider Student in an Organized Health Care Education/Training Program; Visit Provider Student in an Organized Health Care Education/Training Program
DX: O24.410 Gestational diabetes mellitus in pregnancy, diet controlled (principal); Z3A.33 33 weeks gestation of pregnancy; Z71.3 Dietary counseling and surveillance
CPT/HCPCS: 97803

== ENCOUNTER 2022-03-14 09:18 | Outpatient (CLI) | payer OTHER, SELFPAY | END 2022-03-14 10:21 | disposition home or self-care (01) | LOC: LABOR 09:47 → OB 03-18 07:41 | PROVIDERS: Referring Provider Student in an Organized Health Care Education/Training Program; Visit Provider Student in an Organized Health Care Education/Training Program | DX: O24.419 Gestational diabetes mellitus in pregnancy, unspecified control (principal); O09.523 Supervision of elderly multigravida, third trimester; Z3A.33 33 weeks gestation of pregnancy | CPT/HCPCS: 59025; G0378; G0379 ==

== ENCOUNTER 2022-03-17 09:21 | Outpatient (CLI) | payer OTHER, SELFPAY | END 2022-03-17 10:25 | disposition home or self-care (01) | LOC: OB 03-20 07:23 | PROVIDERS: Referring Provider Student in an Organized Health Care Education/Training Program; Visit Provider Student in an Organized Health Care Education/Training Program | DX: O24.419 Gestational diabetes mellitus in pregnancy, unspecified control (principal); O09.523 Supervision of elderly multigravida, third trimester; Z3A.34 34 weeks gestation of pregnancy | CPT/HCPCS: 59025; G0378; G0379 ==

== ENCOUNTER 2022-03-20 15:35 | Outpatient (CLI) | payer OTHER, SELFPAY | END 2022-03-20 16:27 | disposition home or self-care (01) | LOC: LABOR 15:59 → OB 03-25 07:29 | PROVIDERS: Referring Provider Student in an Organized Health Care Education/Training Program; Visit Provider Student in an Organized Health Care Education/Training Program | DX: O24.419 Gestational diabetes mellitus in pregnancy, unspecified control (principal); Z3A.34 34 weeks gestation of pregnancy | CPT/HCPCS: 59025; G0378; G0379 ==

== ENCOUNTER → 2022-03-21 14:30 | Outpatient (CLI) | payer OTHER, SELFPAY ==
--- NOTE | 2022-03-21 18:26 | DIAB.GDFU ---
Follow-up Gestational Diabetes Assessment Name: Natalee Miles Date: 03/21/22 Time: 115-210p Dx: Gestational Diabetes Provider: Pool LAURIE: 04/27/22 (reported) Weeks: 34-35 (reported) Natalee presents for follow-up via telehealth using [employer] platform. Reports plan for induction on 04/22/22. States she saw provider yesterday and started Metformin last night. FBG this morning 98 mg/dL lower than usual, but still above target. BG post breakfast, 171 this morning. Today's breakfast: Half cup skim milk with 1c Honey bunches of oats cereal and small banana (>50g CHO) Last night took Metformin with crackers and cheese and felt nauseated. Denies any changes to diet. Reviewed quick diet recall. Cont to have most meals within goal. Incorporating veggies TID Sees OB weekly Plans to breastfeed. 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 Anthropometrics: No measurements today given nature of telehealth visit. Ht: 64 Wt: 264# last visit Prepregnancy wt: 235# reported Physical Activity: Cont walking BID x 20-30 min each for five days per week, either outside or treadmill. Self-Monitoring Blood Glucose: FBG consistently >100mg/dL, until this morning with 98 mg/dL. Improved after meal, though many still elevated. FB 105 107 109 112 107 107 101 1hr B: 116, 140, 138, 123, 126, 129 1 hr L: 143, 151, 130, 109, 116, 145, 151 1hr D: 139, 137, 114, 146, 138, 142, 150 Diabetes Medications: Metformin 500mg HS Pertinent Labs: OGTT 98H 198H 207H 138 Nutrition Rx: Carbohydrates: Daily: 180-210g Meal: 45-g lunch and dinner; 30g breakfast Snack: 15-30g Intervention: This participant was very receptive. Provided appropriate educational handouts. Discussed the following topics: Recent blood sugar results and impact of food and hormones Metformin SE, taking with food and window of action Review of macronutrient recommendations and label reading Benefits, resources, and nutrition for recommendations for nutrition and physical activity recommendations for T2DM risk reduction OGTT at 6-12 weeks Option for checking blood sugars twice per week (goal: fasting <100 mg/dL and 2 hour pc <140 mg/dL) until 6 week check-up HgA1c q 1-3 years. Goals: Avoid juice- met Keep breakfast carbs to 30g (ie fruit and half eng muffin or just eng muffin)- 75% met Continue walking safely 5 days per week- met Avoid cereal or choose lower carb option discussed- new Get OGTT 6-12 weeks - new Get HgA1c check q 1-3 years- new Follow-up: MODESTA HERNADEZ follow-up i prn. Nuzhat seems to be doing well with lifestyle changes. If 2 or more FBG are above goal, would rec increasing Metformin. Encouraged Natalee to discuss medication mgmnt further with provider if she notices frequent elevations. Encouraged her to call my office for questions or follow-up needs. She agreed to this plan. Aide Stewart RDN, [facility] Certified Diabetes Care and Sterile Technician T: [phone] F: [phone] [email or web address] Thank you for this referral
== END ==
PROVIDERS: Referring Provider Student in an Organized Health Care Education/Training Program; Visit Provider Student in an Organized Health Care Education/Training Program
DX: O24.415 Gestational diabetes mellitus in pregnancy, controlled by oral hypoglycemic drugs (principal); Z3A.34 34 weeks gestation of pregnancy; Z71.3 Dietary counseling and surveillance
CPT/HCPCS: G0108

== ENCOUNTER 2022-03-24 09:32 | Outpatient (CLI) | payer OTHER, SELFPAY ==
--- NOTE | 2022-03-24 10:25 | PM.OBTRLD ---
Visit Information Visit Information Date of evaluation: 03/24/22 Primary OB Provider: Talia Cuellar On-call OB Provider: Halle Bowman Reason for Evaluation: Yes non-stress test Comments/Additional reasons for admission: This patient is a 41yo with GDMA, presenting for routine NST with no obstetrical symptoms. Vital Signs Vital Signs: 129/82, HR 94 PFSH Medical History Asthma Cornea transplant recipient Respiratory infection SOB (shortness of breath) Social History Smoking Status: Never smoker Evaluation Evaluation Baseline heart rate: 150 Variability: Moderate (11-25) monitor accelerations: Present Monitor Decelerations: Absent Category of Tracing: Reactive Status: Category l Diagnosis, Plan/Disposition Plan/Disposition Plan: Home with routine precautions. OB Disposition: home
== END 2022-03-24 10:25 | disposition home or self-care (01) ==
LOC: LABOR 10:06 → OB 04-08 07:54
PROVIDERS: Referring Provider Student in an Organized Health Care Education/Training Program; Visit Provider Student in an Organized Health Care Education/Training Program
DX: O24.419 Gestational diabetes mellitus in pregnancy, unspecified control (principal); O09.523 Supervision of elderly multigravida, third trimester; Z3A.35 35 weeks gestation of pregnancy
CPT/HCPCS: 59025; G0378; G0379

== ENCOUNTER 2022-03-27 10:59 | Outpatient (CLI) | payer OTHER, SELFPAY | END 2022-03-27 12:12 | disposition home or self-care (01) | LOC: LABOR 11:45 → OB 04-15 07:53 | PROVIDERS: Referring Provider Student in an Organized Health Care Education/Training Program; Visit Provider Student in an Organized Health Care Education/Training Program | DX: O24.415 Gestational diabetes mellitus in pregnancy, controlled by oral hypoglycemic drugs (principal); Z3A.35 35 weeks gestation of pregnancy | CPT/HCPCS: 59025; G0378; G0379 ==

== ENCOUNTER 2022-03-31 09:33 | Outpatient (CLI) | payer OTHER, SELFPAY | END 2022-03-31 10:50 | disposition home or self-care (01) | LOC: LABOR 10:03 → OB 04-01 06:37 | PROVIDERS: Referring Provider Student in an Organized Health Care Education/Training Program; Visit Provider Student in an Organized Health Care Education/Training Program | DX: O47.03 False labor before 37 completed weeks of gestation, third trimester (principal); O09.523 Supervision of elderly multigravida, third trimester; O24.415 Gestational diabetes mellitus in pregnancy, controlled by oral hypoglycemic drugs; Z3A.36 36 weeks gestation of pregnancy | CPT/HCPCS: 59025; G0378; G0379 ==

== ENCOUNTER 2022-04-02 05:02 | Observation (INO) | payer OTHER, SELFPAY ==
[2022-04-02 05:58] LABS: Appearance Urine UA CLEAR; Bilirubin Urine UA NEGATIVE (NEGATIVE); Color Urine UA YELLOW; Glucose Urine UA NEGATIVE (Negative); Ketones Urine UA NEGATIVE (NEGATIVE); Leukocyte Esterase Urine UA NEGATIVE (NEGATIVE); Nitrite Urine UA NEGATIVE (Negative); Occult Blood Urine UA NEGATIVE (Negative); Protein Urine UA NEGATIVE (Negative); Specific Gravity Urine UA <=1.005 (1.000-1.035); Urobilinogen Urine UA 0.2 E.U./dL (0.2)
[2022-04-02 05:59] LABS: pH Urine UA 6.5 (4.5-8.0)
[2022-04-02] MEDS: ACETAMINOPHEN 325 MG TABLET 975 MG PO (06:06)
[2022-04-02] MEDS: hydrOXYzine pamoate 25 MG CAPSULE 50 MG PO (06:06)
[2022-04-02 06:08] LABS: Bacteria Urine Moderate (10-30); Culture Indicated Urine Specimen Cultured; RBC Urine None Seen (0-5/HPF); Squamous Epithelial Cell Urine 1-5 /HPF (0-5/HPF); WBC Urine 0-1/HPF (0-5/HPF)
--- NOTE | 2022-04-02 06:40 | DI.US.S_ITS ---
PROCEDURE: US OB BIOPHYSICAL PROFILE INDICATIONS: LABOR; GDM OUTSIDE/PRIOR DATING DATA: Last menstrual period (LMP): Unknown. LMP-based estimated date of delivery (LAURIE): Not available. First dating scan (date and location): [facility], September 18, 2021. Estimated date of delivery (LAURIE) from first dating scan: April 27, 2022. TECHNIQUE: Real-time scanning was performed of the fetus for biophysical profile, with image documentation. Color and pulse Doppler interrogation was also performed of the umbilical artery near its insertion into the placenta. Endovaginal scanning: Not performed COMPARISON: [facility], OB BIOPHYSICAL PROFILE, 03/05/2022, 13:03. FINDINGS: General: A single living intrauterine gestation is present. Presentation: Vertex. Placenta: Placental position is posterior , without previa. Amniotic fluid index: 6 cm, normal range is 5-24 cm. Single deepest vertical pocket is 4.42 cm. heart rate: 147 beats per minute. Maternal cervical canal: Not visualized Estimated gestational age from initial scan: 36 weeks, 3 days. Biophysical profile: Tone: 2 points. Movement: 2 points. Respiration: 2 points. Largest pocket of fluid: 2 points. IMPRESSION: Single live intrauterine gestation with an 8/8 biophysical profile. We strive to produce accurate, complete, and clear reports of imaging services. To assist us in improving patient care, this report was composed using standard report templates and voice recognition software. Therefore, it may contain abnormal punctuation, insertions and/or omissions. Occasional wrong-word or sound-alike substitutions may occur. Though we review the report and make efforts to correct it, we do recommend that the report be read carefully in proper context to recognize any text inaccuracies. Dictated by: Rosana Hager M.D. on 04/02/2022 at 8:11 Approved by: Rosana Hager M.D. on 04/02/2022 at 8:24
[2022-04-02] MEDS: cephALEXin 250 MG CAPSULE 500 MG PO (07:07)
== END 2022-04-02 08:10 | disposition home or self-care (01) ==
PROVIDERS: Student in an Organized Health Care Education/Training Program; Admitting Provider Family Medicine; Referring Provider Family Medicine; Visit Provider Family Medicine
DX: O47.03 False labor before 37 completed weeks of gestation, third trimester (principal); Z3A.36 36 weeks gestation of pregnancy
CPT/HCPCS: 59025; 59050; 76819; 81001; 87086; G0378; G0379

== ENCOUNTER 2022-04-03 10:58 | Outpatient (CLI) | payer OTHER, SELFPAY | END 2022-04-03 11:54 | disposition home or self-care (01) | LOC: LABOR 11:52 → OB 04-08 07:57 | PROVIDERS: Referring Provider Student in an Organized Health Care Education/Training Program; Visit Provider Student in an Organized Health Care Education/Training Program | DX: O24.419 Gestational diabetes mellitus in pregnancy, unspecified control (principal); Z3A.36 36 weeks gestation of pregnancy; Z34.80 Encounter for supervision of other normal pregnancy, unspecified trimester | CPT/HCPCS: 59025; 87081; G0378; G0379 ==

== ENCOUNTER → 2022-04-03 15:21 | Outpatient (ROUT) | payer OTHER, SELFPAY | PROVIDERS: Visit Provider Student in an Organized Health Care Education/Training Program | DX: Z34.80 Encounter for supervision of other normal pregnancy, unspecified trimester (principal) | CPT/HCPCS: 87081 ==

== ENCOUNTER 2022-04-07 09:39 | Outpatient (CLI) | payer OTHER, SELFPAY ==
[2022-04-07 10:09] VITALS: BP 111/59; PULSE 93; RESP 20; TEMP 36.4
== END 2022-04-07 10:20 | disposition home or self-care (01) ==
LOC: LABOR 10:31 → OB 04-08 08:03
PROVIDERS: PCP Student in an Organized Health Care Education/Training Program; Referring Provider Student in an Organized Health Care Education/Training Program; Visit Provider Student in an Organized Health Care Education/Training Program
DX: O24.415 Gestational diabetes mellitus in pregnancy, controlled by oral hypoglycemic drugs (principal); Z3A.37 37 weeks gestation of pregnancy
CPT/HCPCS: 59025; G0378; G0379

== ENCOUNTER 2022-04-10 10:30 | Outpatient (CLI) | payer OTHER, SELFPAY ==
[2022-04-10 11:41] VITALS: BP 131/73; PULSE 93; RESP 20; TEMP 35.8
== END 2022-04-10 11:40 | disposition home or self-care (01) ==
LOC: LABOR 11:24 → OB 04-11 08:51
PROVIDERS: PCP Student in an Organized Health Care Education/Training Program; Referring Provider Student in an Organized Health Care Education/Training Program; Visit Provider Student in an Organized Health Care Education/Training Program
DX: O24.415 Gestational diabetes mellitus in pregnancy, controlled by oral hypoglycemic drugs (principal); Z3A.37 37 weeks gestation of pregnancy
CPT/HCPCS: 59025; G0378; G0379

== ENCOUNTER 2022-04-14 09:23 | Outpatient (CLI) | payer OTHER, SELFPAY ==
--- NOTE | 2022-04-14 10:11 | DI.US.S_ITS ---
PROCEDURE: US OB BIOPHYSICAL PROFILE INDICATIONS: Increased heart tones OUTSIDE/PRIOR DATING DATA: Last menstrual period (LMP): Unknown First dating scan (date and location): 09/18/2021 Estimated date of delivery (LAURIE) from first dating scan: 04/27/2022 The calculations are made using the ultrasound LAURIE of 04/27/2022. TECHNIQUE: Real-time scanning was performed of the fetus for biophysical profile, with image documentation. Endovaginal scanning: Not performed. COMPARISON: [facility], OB BIOPHYSICAL PROFILE, 04/02/2022, 8:27. FINDINGS: General: A single living intrauterine gestation is present. Presentation: Vertex Placenta: Placental position is fundal, without previa. Amniotic fluid index: 13.0 cm, normal range is 5-24 cm. Single deepest vertical pocket is 7.4 cm. heart rate: 153-173 beats per minute. Maternal cervical canal: Not well seen. Estimated gestational age from initial scan: 38 weeks 1 day Biophysical profile: Tone: 2 points. Movement: 2 points. Respiration: 2 points. Largest pocket of fluid: 2 points. IMPRESSION: 1. Single live intrauterine . 2. Biophysical profile score 8 of 8. 3. heart rate 153-173 beats per minute. We strive to produce accurate, complete, and clear reports of imaging services. To assist us in improving patient care, this report was composed using standard report templates and voice recognition software. Therefore, it may contain abnormal punctuation, insertions and/or omissions. Occasional wrong-word or sound-alike substitutions may occur. Though we review the report and make efforts to correct it, we do recommend that the report be read carefully in proper context to recognize any text inaccuracies. Dictated by: Luis Espino M.D. on 04/14/2022 at 11:36 Approved by: Luis Espino M.D. on 04/14/2022 at 11:40
== END 2022-04-14 11:14 | disposition home or self-care (01) ==
LOC: LABOR 10:14 → OB 04-15 06:50
PROVIDERS: PCP Student in an Organized Health Care Education/Training Program; Referring Provider Student in an Organized Health Care Education/Training Program; Visit Provider Student in an Organized Health Care Education/Training Program
DX: O24.415 Gestational diabetes mellitus in pregnancy, controlled by oral hypoglycemic drugs (principal); O47.1 False labor at or after 37 completed weeks of gestation; Z3A.38 38 weeks gestation of pregnancy
CPT/HCPCS: 59025; 76819; G0378; G0379

== ENCOUNTER 2022-04-18 09:56 | Outpatient (CLI) | payer OTHER, SELFPAY | END 2022-04-18 11:03 | disposition home or self-care (01) | LOC: LABOR 10:01 → OB 04-21 16:01 | PROVIDERS: PCP Student in an Organized Health Care Education/Training Program; Referring Provider Student in an Organized Health Care Education/Training Program; Visit Provider Student in an Organized Health Care Education/Training Program | DX: O24.415 Gestational diabetes mellitus in pregnancy, controlled by oral hypoglycemic drugs (principal); O09.523 Supervision of elderly multigravida, third trimester; O47.1 False labor at or after 37 completed weeks of gestation; Z3A.38 38 weeks gestation of pregnancy | CPT/HCPCS: 59025; G0378; G0379 ==

== ENCOUNTER 2022-04-23 11:46 | Inpatient (IN) | payer OTHER, SELFPAY ==
--- NOTE | 2022-04-23 12:16 | P.HPOB_ITS ---
OB HPI Date/Time Date of admission: 04/23/22 Date Patient Seen: 04/23/22 Time Patient Seen: 12:16 History of Present Condition Chief complaint: induction Narrative: Natalee Miles is a 41 year old at 39w3d with LAURIE of 04/27/22 per first trimester ultrasound. She presents for induction of labor secondary to advanced maternal age and gestational diabetes. Her course has been complicated by gestational diabetes, she has been controlled on metformin XR 500 mg PO qd and compliant with diabetic diet. Fasting and post-prandial blood sugars have been at goal. testing has shown NSTs to be reactive and reassuring. AFIs have been normal. At 32w3d, she had a late decel at time of NST, BPP was 8/8. At 38w1d, she had a period of tachycardia at time of NST with a heart rate range of 153-173. BPP was 8/8. Mother was afebrile, normotensive, and without pain. Mother was given oral fluids and heart rate reduced to normal range, thought to be secondary to recent maternal food intake. Mother is obese with a pre-gravid BMI of 42; estimated weights have all been within normal limits, most recently 68th percentile at 38w5d. She has had a total weight gain of 23 pounds during the . LABS/IMAGING: ABO B positive, antibody negative on 09/10/21. Rubella immune. Hepatitis-B surface antigen negative. HIV, HSV 2 negative. GC/chlamydia negative. Trepon emal antibody negative. Varicella titer positive. Pap smear negative on 10/10/21. Urine culture negative on 10/10/21. Hemoglobin/hematocrit 12.9/39.2 on 09/10/21. Repeat hemoglobin/hematocrit 11.0/32.7 on 04/03/22. TSH within normal limits. 1 hour Glucola 186 on 02/20/22, 3 hour 95/180/155/140 on 02/25/22. GBS negative on 04/03/22. NIPT negative, 11/13/21, female. Dating US: 8w3d, LAURIE 04/27/22 Anatomy Scan: 24w1d, incomplete survey; 30w1d, survey complete and normal, EFW 81st percentile PATRICA: 32w2d, 13.1 cm; 33w0d, 8.4 cm; 34w2d, 8.4 cm; 36w3d, 6 cm; 37w2d, 8.6 cm; 38w1d, 13.0 cm BPP: 32w3d, 8/8; 36w3d, 88; 38w1d, 88 Growth: 36w5d, 74th percentile; 38w5d 68th percentile OBSTETRIC HISTORY: # 1 Delivery date: 02/08/2004 Weeks Gestation: 36 labor: no Delivery type: Hours of labor: 1 Delivery location: [facility] Infant Sex: Male weight: 5lb 11oz Name: Jewel # 2 Delivery date: 02/19/2005 Weeks Gestation: 39 labor: no Delivery type: Hours of labor: 9 Delivery location: [place] Sex: Male weight: 7lbs 1oz Name: Dani # 3 Delivery date: 03/29/2006 Weeks Gestation: 38 labor: no Delivery type: Hours of labor: 5 Anesthesia type: none Delivery location: [place] Infant Sex: Male weight: 6lbs 11 oz Name: Johnny # 4 Delivery date: 12/31/2008 Weeks Gestation: 40 labor: no Delivery type: Hours of labor: 6 Anesthesia type: None Delivery location: [place] Infant Sex: Female weight: 6lbs 1 oz Name: Toshia # 5 Delivery date: 09/22/2015 Weeks Gestation: 39 labor: no Delivery type: Hours of labor: 7 Anesthesia type: None Delivery location: [place], [place] Infant Sex: Female weight: 7lbs 3 oz Name: Negin # 6 Delivery date: 01/24/2008 Weeks Gestation: 18 Delivery type: D&C Anesthesia type: general Comments: Miscarried GYNECOLOGICAL HISTORY: None PAST MEDICAL HISTORY: Asthma 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 [facility] Medical History Asthma Cornea transplant recipient Respiratory infection SOB (shortness of breath) Social History Smoking Status: Never smoker Meds Home Medications and Allergies Home Medications Medication Instructions Recorded Confirmed Type inhalational spacing device #1 ea 06/26/21 04/02/22 Rx (Jdjameel Watt [facility]) fluticasone propionate 110 1 puff INHALATION BID #12 g 07/05/21 04/02/22 Rx mcg/actuation HFA aerosol inhaler (Flovent HFA) albuterol sulfate 90 mcg/actuation See Rx Instructions .ROUTE 01/27/22 04/02/22 Rx aerosol inhaler .COMPLEX #8.5 g Allergies Allergy/AdvReac Type Severity Reaction Status Date / Time oats [OATS] Allergy Unknown Verified 06/26/21 11:19 latex AdvReac Mild Rash Verified 04/02/22 06:55 DUST Allergy Unknown Uncoded 06/26/21 11:19 Review of Systems Review of Systems Narrative: All remaining ROS were reviewed and negative except as addressed. OB Exam Narrative Exam Narrative: General: NAD Skin: Color unremarkable, no rash nor lesions HEENT: Neck supple with midline trachea Lungs: CTAB Heart: Normal rate, and regular rhythm, S1, S2 normal, no murmur, click, rub or gallop Abdomen: Gravid, soft, non-tender Extremities: No clubbing, no edema, no cyanosis Pelvis: Normal female external genitalia Presentation: vertex Cervix: 1/50/high Monitoring: Variability: Moderate Baseline: 150s Accelerations: Present Decelerations: Absent Contractions: Intermittent Strength: Mild Objective Labs Result Diagrams: 04/23/22 12:15 Assessment and Plan Assessment and Plan Assessment and Plan narrative: 1. IUP at 39w3d 2. 3. Advanced maternal age 4. Gestational diabetes, controlled 5. Maternal obesity, pre-gravid BMI 42 6. Asthma Plan: Admit to Labor and delivery with routine orders for pitocin induction. Anticipate vaginal delivery. Questions answered, appropriate consents will be signed.
[2022-04-23 12:36] LABS: Add Manual Diff / Slide Review NO; Basophils Absolute Auto 100 /uL (0-100); Basophils Percent Auto 0.8 % (0-2); Eosinophils Absolute Auto 100 /uL (0-450); Hematocrit 32.1 % (36-46); Lymphocytes Absolute Auto 2000 /uL (1100-4500); Mean Corpuscular HGB Conc 34.3 % (30-36); Mean Corpuscular Hemoglobin 29.5 PG (26-34); Mean Corpuscular Volume 86.1 fL (80-100); Monocytes Absolute Auto 600 /uL (0-900); Monocytes Percent Auto 9.5 % (3-14); Neutrophils Absolute Auto 3600 /uL (1500-7000); Neutrophils Percent Auto 56.7 % (50-75); Platelet Count 308 X10^3/uL (150-400); Red Blood Cell Count 3.73 X10^6/uL (4.0-5.2); Red Cell Distribution Width 13.7 % (11.6-14.8); White Blood Cell Count 6.4 X10^3/uL (4.5-11.0)
[2022-04-23] MEDS: OXYTOCIN PREMIX 30 UNIT/500 ML PLAST..BAG IV (12:59)
[2022-04-23] MEDS: LACTATED RINGERS 1,000 ML 100 ML IV (12:59)
[2022-04-23 13:08] LABS: COVID19 -Nasal RAPID Negative (Negative)
--- NOTE | 2022-04-23 16:16 | PM.OBPNLAB ---
Date/Time Date Patient Seen: 04/23/22 Time Patient Seen: 16:17 Pain Control Comments: Pitocin at 6 units, mother ambulating in hallways, feeling contractions, strong. Tolerating pain well. Pelvic Exam Dilation (cm): 1 Effacement (%): 50 station: -4 Amniotic membrane status: Intact Contractions Contractions on admission: irregular Monitor mode: External Pitocin rate (mU/min): 4 Contraction frequency (min): 2 Contraction duration (min): 1 Contraction pattern: Regular Contraction phase: Contraction Contraction intensity: Moderate Status Heart Rate Baseline: 150 Monitor Accelerations: Present Monitor Decelerations: Variable Monitor Variability: Moderate Assessment and Plan Assessment: induction ongoing Plan: continuous present management
--- NOTE | 2022-04-23 18:42 | PM.OBPNLAB ---
Date/Time Date Patient Seen: 04/23/22 Time Patient Seen: 18:42 Pain Control Comments: Patient has been bouncing on the birthing ball. While bouncing, felt that she had to go to the bathroom and thought she ruptured her membranes at about 17:40. She did use the bathroom after that. Nursing did not witness the episode; thinks it might not have been a rupture as she has only had a few drops of blood. Pitocin at 4 units. Interested in pain control but not an epidural. Pelvic Exam Dilation (cm): 1 Effacement (%): 50 station: -3 Amniotic membrane status: Intact Contractions Monitor mode: External Contraction frequency (min): 3 Contraction duration (min): 1 Contraction pattern: Regular Contraction phase: Contraction (some coupling) Contraction intensity: Moderate Status Heart Rate Baseline: 145 Monitor Accelerations: Present Monitor Decelerations: Variable Monitor Variability: Moderate Assessment and Plan Assessment: induction ongoing Plan: continuous present management Comments: Based on cervical exam, membranes do not appear to be ruptured. Some coupling on strip, patient placed on hands and knees, hopefully baby will turn. Will start nitrous.
[2022-04-23] MEDS: ONDANSETRON 4 MG/2 ML INJ IV (20:22)
--- NOTE | 2022-04-23 22:41 | PM.OBPNLAB ---
Date/Time Date Patient Seen: 04/23/22 Time Patient Seen: 22:41 Pain Control Comments: Patient has made little progress over the last 10 hours. Not tolerating contractions very well, using nitrous. Pelvic Exam Dilation (cm): 1 Effacement (%): 50 station: -3 Amniotic membrane status: Intact Contractions Monitor mode: External Contraction frequency (min): 3 Contraction pattern: Regular Contraction phase: Contraction (some coupling) Contraction intensity: Moderate Status Heart Rate Baseline: 130 Monitor Accelerations: Present Monitor Decelerations: Variable Monitor Variability: Moderate Assessment and Plan Assessment: induction ongoing Comments: Have turned off Pitocin secondary to very little cervical change in the last 10 hours. Contractions are also coupling and so baby is possibly OP. Will let contractions subside and then start Cytotec overnight for cervical ripening. Hopefully baby will turn and engage in the pelvis more. Plan to restart Pitocin in the morning if cervix is more favorable. Do not believe that she is ruptured.
[2022-04-24] MEDS: ONDANSETRON 4 MG/2 ML INJ IV (07:33)
[2022-04-24] MEDS: fentaNYL 100 MCG/2 ML INJ 50 MCG IV (07:50)
--- NOTE | 2022-04-24 08:03 | PM.OBPNLAB ---
Date/Time Date Patient Seen: 04/24/22 Time Patient Seen: 08:03 Pain Control Comments: Feeling contractions very intensely now. Pitocin was turned off overnight to allow for cervical ripening with cytotec but it was not administered as contractions did not slow down and baby had a few decels and some tacychardia. Both decels and tachycardia spontanously resolved. Pitocin restarted this morning at 5 am, now at 4 units. Pelvic Exam Dilation (cm): 8 Effacement (%): 90 station: -1 Amniotic membrane status: Intact Comments: SROM, clear fluid Contractions Monitor mode: External Contraction frequency (min): 3 Contraction pattern: Regular Contraction phase: Contraction (some coupling) Contraction intensity: Moderate Status Heart Rate Baseline: 145 Monitor Accelerations: Present Monitor Decelerations: Variable Monitor Variability: Moderate Assessment and Plan Assessment: active labor and induction ongoing Plan: continuous present management Comments: Anticipate .
--- NOTE | 2022-04-24 08:37 | PM.OBPNLAB ---
Date/Time Date Patient Seen: 04/24/22 Time Patient Seen: 08:37 Pain Control Comments: Feeling more pressure. Pelvic Exam Dilation (cm): 9 Effacement (%): 90 station: 0 Amniotic membrane status: Intact Contractions Monitor mode: External Contraction frequency (min): 3 Contraction pattern: Regular Contraction phase: Contraction (some coupling) Contraction intensity: Moderate Status Heart Rate Baseline: 145 Monitor Accelerations: Present Monitor Decelerations: Early Monitor Variability: Moderate Assessment and Plan Assessment: active labor and induction ongoing Plan: continuous present management
[2022-04-24] MEDS: miSOPROStoL 200 MCG TABLET 600 MCG PO (10:35)
[2022-04-24 11:08] VITALS: TEMP 36.1
[2022-04-24] MEDS: KETOROLAC 30 MG/ML VIAL IV ×2 (11:08→17:22)
--- NOTE | 2022-04-24 11:42 | PM.OBPRVD ---
Labor & Delivery Delivery date: 04/24/22 Narrative: On 04/24/22, this 41 year old , GBS negative female under fentanyl anesthesia delivered a viable female infant with unknown weight and scores of 8/9. Delivery was via normal spontaneous vaginal delivery at 10:30 a.m.. No nuchal cords. Cord clamped and cut and infant handed to mother. Cord blood sent for analysis. Intact placenta with three-vessel cord was delivered spontaneously at 11:40 a.m. 10 mg of IV Pitocin administered followed by 600 mcg of oral Cytotec was given for initial brisk flow, no hemorrhage ensued. Uterus, cervix, vagina, and rectum explored and found to be intact. Estimated blood loss 350 cc. Patient remained in the delivery room in stable condition. remained in the delivery room stable condition.
[2022-04-24] MEDS: ACETAMINOPHEN 325 MG TABLET 650 MG PO ×2 (14:42→21:56)
[2022-04-25] MEDS: KETOROLAC 30 MG/ML VIAL IV ×2 (01:03→05:56)
[2022-04-25] MEDS: ACETAMINOPHEN 325 MG TABLET 650 MG PO ×2 (05:56→13:15)
[2022-04-25 07:11] LABS: Hematocrit 28.1 % (36-46); Hemoglobin 9.4 g/dL (12.0-16.0)
--- NOTE | 2022-04-25 07:18 | P.DS_ITS ---
Discharge Providers Provider Date of admission: 04/23/22 11:46 Discharge Date: 04/25/22 Primary care physician: Talia Cuellar MD Consults: 04/25/22 11:46 Consult to Human Factors Scientist Routine Comment: Discharge provider: Talia Cuellar MD Summary Hospital Course Date Patient Seen: 04/25/22 Time Patient Seen: 07:19 Diagnoses: 1.? Status post at 39w4d 2.? 3.? Advanced maternal age 4.? Gestational diabetes, controlled 5.? Maternal obesity, pre-gravid BMI 42 6.? Asthma Hospital Course: Unremarkable. Mother is well. Tolerating full diet with no nausea vomiting. Ambulating well. Lochia less than menses. On day of discharge, she is afebrile with stable vital signs throughout. Time spent on Discharge and Coordination of post-hospital care: 35 minutes Peripartum Data Infant Delivery Method: Natural Vaginal Laceration Description: None Episiotomy description: None Status at Discharge Cognitive/behavioral status at discharge: at baseline, oriented Functional status at discharge: independent ambulation Overall status at discharge: patient is progressing back to baseline Time Spent with Patient Time attestation: Total time spent providing and/or coordinating discharge services: Objective Labs Result Diagrams: 04/25/22 06:13 Labs: Laboratory Results - last 24 hr 04/25/22 06:13 Hgb 9.4 L Hct 28.1 L Exam Narrative Exam Narrative: GENERAL: Alert and oriented, appearing stated age and in no acute distress. HEENT: Head normocephalic/atraumatic. Extraocular movements intact. LUNGS: Clear to ausculation bilaterally, no wheezes, rhonchi or rales. CV: Normal S1 and S2 with regular rate and rhythm, no audible murmurs, rubs or gallops. ABDOMEN: FF at U-2, soft, non-tender, non-distended, no organomegaly. Positive bowel sounds. EXTREMITIES: No clubbing, cyanosis, or edema. NEURO: Cranial nerves II through XII grossly intact, no focal deficits. PSYCH: Alert and oriented x 3. SKIN: No concerning lesions. Discharge Plan Discharge Plan Patient Disposition: Home Discharge orders & Medications Prescriptions: New ibuprofen 600 mg Tablet 600 mg PO Q6HR PRN (Reason: Pain, Mild (1-3)) Qty: 45 1RF Prenatabs Rx 29 mg iron- 1 mg Tablet 1 tab PO DAILY Qty: 90 3RF Continued (DME) Alka Watt [facility] Spacer See Rx Instructions miscellaneous .MEDSUPPLY Qty: 1 0RF Rx Instructions: As directed albuterol sulfate 90 mcg/actuation HFA aerosol inhaler See Rx Instructions .ROUTE .COMPLEX Qty: 8.5 3RF Dose Instruction: INHALE 2 PUFFS BY MOUTH EVERY 4 TO 6 HOURS NEEDED FOR WHEEZING OR SHORTNESS OF BREATH Rx Instructions: INHALE 2 PUFFS BY MOUTH EVERY 4 TO 6 HOURS NEEDED FOR WHEEZING OR SHORTNESS OF BREATH Flovent HFA 110 mcg/actuation HFA aerosol inhaler 1 puff inhalation BID Qty: 12 2RF Rx Instructions: administer with spacer Follow up/Referrals: Talia Cuellar MD [Primary Care Provider] - (Clinic will make 6 week appt on Thursday at baby's check up.) Diet/Activity/Treatments Diet: Diet as Tolerated and Regular Activity: 1. Routine care 2. No driving for 2 weeks. 3. Call or return for uncontrolled pain, fever, intractable nausea or vomiting, trouble with urination, heavy vaginal bleeding greater than 1 pad per hour, suicidal/homicidal thoughts, signs or symptoms of infection, or any other concerns. Skin/Wound/Dressing Care Report to your healthcare provider any signs of infection, such as:: chills, fever, increased pain and unusual drainage Visit Report/Discharge Packet Stand Alone Forms: Discharge: Care Discharge Data Primary Care Provider: Talia Cuellar
[2022-04-25] MEDS: IBUPROFEN 600 MG TABLET PO (13:16)
[2022-04-25] MEDS: PRENATAL VIT,CALC/IRON/FOLIC 1 TABLET 1 TAB PO (13:16)
[2022-04-25 14:49] VITALS: BP 108/56; PULSE 66; RESP 16; TEMP 36.2
[2022-04-25 15:00] VITALS: BP 108/56; PULSE 66; RESP 16; TEMP 36.2
== END 2022-04-25 16:00 | disposition home or self-care (01) | DRG 807 ==
PROVIDERS: Admitting Provider Student in an Organized Health Care Education/Training Program; PCP Student in an Organized Health Care Education/Training Program; Referring Provider Student in an Organized Health Care Education/Training Program; Visit Provider Student in an Organized Health Care Education/Training Program
DX: O24.425 Gestational diabetes mellitus in childbirth, controlled by oral hypoglycemic drugs (principal); Z37.0 Single live birth; Z3A.39 39 weeks gestation of pregnancy; O99.214 Obesity complicating childbirth; O99.891 Other specified diseases and conditions complicating pregnancy; J45.909 Unspecified asthma, uncomplicated; O76 Abnormality in fetal heart rate and rhythm complicating labor and delivery; Z20.822 Contact with and (suspected) exposure to COVID-19
CPT/HCPCS: 36415; 59050; 85014; 85018; 85025; 86850; 86900; 86901; 87635; C9803; G0379; J1885; J2405; J2590; J3010; S0191

== ENCOUNTER → 2023-03-26 15:21 | Outpatient (CLI) | payer OTHER, MEDICAID, SELFPAY ==
--- NOTE | 2023-03-26 | DI.RAD.S_ITS ---
PROCEDURE: XR LUMBAR SPINE 2-3V INDICATIONS: Right Hip Pain TECHNIQUE: 3 views of the lumbar spine were acquired. COMPARISON: None. FINDINGS: Bones: 5 [id number] vertebrae are present. There is normal bony alignment. No vertebral body compression fractures. No suspicious bony lesions. Soft tissues: Overlying bowel gas pattern is normal. No suspicious soft tissue calcifications. IMPRESSION: Unremarkable radiographic examination of lumbar spine. Dictated by: Rosendo Carvalho M.D. on 03/26/2023 at 16:59 Approved by: Rosendo Carvalho M.D. on 03/26/2023 at 16:59
--- NOTE | 2023-03-26 | DI.RAD.S_ITS ---
PROCEDURE: XR HIP W PEL IF DONE RT 2V INDICATIONS: Right Hip pain TECHNIQUE: AP pelvis with lateral view(s) of the right hip(s). COMPARISON: None. FINDINGS: Bones: Mild right hip joint osteoarthritic changes are seen with superior joint space narrowing and subchondral sclerosis. No fractures or dislocations. No evidence of avascular necrosis of femoral head. Pelvic ring appears intact. No suspicious bony lesions. Soft tissues: The visualized bowel gas pattern is normal. No suspicious soft tissue calcifications. IMPRESSION: Mild asymmetric right hip joint osteoarthritis. No hip fracture or dislocation. No evidence of avascular necrosis. Dictated by: Rosendo Carvalho M.D. on 03/26/2023 at 16:58 Approved by: Rosendo Carvalho M.D. on 03/26/2023 at 16:58
== END ==
PROVIDERS: PCP Family Medicine; Referring Provider Registered Nurse; Visit Provider Registered Nurse
DX: M16.11 Unilateral primary osteoarthritis, right hip (principal); M25.551 Pain in right hip
CPT/HCPCS: 72100; 73502

== ENCOUNTER 2023-08-24 16:13 | Emergency (ER) | payer OTHER, SELFPAY ==
[2023-08-24] VITALS (7 sets, daily range): BP systolic 139–178; BP diastolic 81–105; PULSE 63–82; RESP 14–17; TEMP 36.6; O2SAT 98–100; BMI 41.1
[2023-08-24 16:58] LABS: Add Manual Diff / Slide Review NO; Basophils Absolute Auto 100 /uL (0-100); Basophils Percent Auto 0.8 % (0-2); Eosinophils Absolute Auto 300 /uL (0-450); Eosinophils Percent Auto 4.3 % (2-4); Hematocrit 38.4 % (36-46); Hemoglobin 13.1 g/dL (12.0-16.0); Lymphocytes Absolute Auto 2600 /uL (1100-4500); Lymphocytes Percent Auto 40.9 % (25-40); Mean Corpuscular HGB Conc 34.2 % (30-36); Mean Corpuscular Hemoglobin 30.6 PG (26-34); Mean Corpuscular Volume 89.5 fL (80-100); Monocytes Absolute Auto 600 /uL (0-900); Monocytes Percent Auto 9.9 % (3-14); Neutrophils Absolute Auto 2900 /uL (1500-7000); Neutrophils Percent Auto 44.1 % (50-75); Platelet Count 315 X10^3/uL (150-400); Red Blood Cell Count 4.29 X10^6/uL (4.0-5.2); Red Cell Distribution Width 13.6 % (11.6-14.8); White Blood Cell Count 6.5 X10^3/uL (4.5-11.0)
[2023-08-24 17:17] LABS: Alanine Aminotransferase 28 IU/L (<35); Albumin 4.4 g/dL (3.5-5.0); Alkaline Phosphatase 61 U/L (38-126); Aspartate Aminotransferase 28 IU/L (14-36); BUN Creatinine Ratio 12.2 (6-22); Bilirubin Total 0.3 mg/dL (0.2-1.3); Blood Urea Nitrogen 6 mg/dL (7-17); Calcium 9.4 mg/dL (8.4-10.2); Carbon Dioxide 28 mmol/L (22-32); Chloride 104 mmol/L (98-107); Estimated Glomerular Filt Rate > 60 mL/min (>60); Globulin 4.2 g/dL (1.7-4.1); Glucose 100 mg/dL (70-100); HEMOLYSIS 38 (0-50); Lipase 80 U/L (23-300); Potassium 3.9 mmol/L (3.4-5.1); Sodium 140 mmol/L (137-145); Total Protein 8.6 g/dL (6.3-8.2)
[2023-08-24] MEDS: ONDANSETRON 4 MG/2 ML INJ IV (18:34)
--- NOTE | 2023-08-24 19:21 | ED.ABDPAIN ---
HPI - Abdominal Pain General Chief Complaint: Abdominal Pain Stated Complaint: Head pain, ABD pain, Frequent urination Time Seen by Provider: 08/24/23 19:07 Source: patient Mode of arrival: Ambulatory Limitations: no limitations History of Present Illness HPI narrative: This is a 42-year-old female with history of asthma, keratoconus who comes with complaint of headaches for the past 3 weeks. Patient states she had COVID 2 weeks ago she thought the headaches were left over from that but they have been persisting. She has not had any fevers, her congestion has resolved. She is had nausea although that is better currently. It does seem to be little bit related to the headaches. She does not have any history of migraines. She describes little bit of epigastric pain. No chest pain or shortness of breath. She denies any back or flank pain. She denies any diarrhea constipation, she states she is had urinary urgency frequency but no dysuria or hematuria. Patient denies any vaginal bleeding or discharge. No vaginal irritation. Patient went to be seen on her primary care office and was told to come for evaluation. She has a history of asthma uses Flovent albuterol, prednisolone drops for her eyes for keratoconus. Prior surgeries include surgeries for her eyes. States no known drug allergies. No tobacco, alcohol or illicit. Primary care is Dr. Perdomo. Related Data Previous Rx's Medication Instructions Recorded inhalational spacing device #1 ea 06/26/21 (Alka [facility] spacer) fluticasone propionate 110 1 puff inhalation BID asthma #12 07/05/21 mcg/actuation HFA aerosol inhaler grams (Flovent HFA) albuterol sulfate 90 mcg/actuation See Rx Instructions .Route 01/27/22 aerosol inhaler .COMPLEX asthma #8.5 grams ibuprofen 600 mg tablet 600 mg PO Q6HR PRN Pain, Mild 04/25/22 (1-3) #45 tabs vitamin 1 tab PO DAILY #90 tabs 04/25/22 no.76-iron,carbonyl 29 mg iron-folic acid 1 mg tablet (Prenatabs Rx) Allergies Allergy/AdvReac Type Severity Reaction Status Date / Time oats [OATS] Allergy Unknown Verified 08/24/23 16:24 latex AdvReac Mild Rash Verified 08/24/23 16:24 DUST Allergy Unknown Uncoded 09/25/23 16:24 Review of Systems Review of Systems ROS Unobtainable: All systems reviewed & are unremarkable except as noted in HPI and below Patient History Medical History Asthma Cornea transplant recipient Respiratory infection SOB (shortness of breath) Social History Smoking Status: Never smoker Smoking Status: Never smoker alcohol intake frequency: 0-2 drinks per day Substance Use Type: does not use Exam Narrative Exam Narrative: GEN: well nourished, well appearing female, alert and oriented x 3, patient appears to be in mild distress. HEENT: Atraumatic, pupils are equal round reactive to light, extraocular movements are intact, nares are clear, TMs are clear with no fluid, there is no conjunctival pallor. Throat is clear without any exudates, erythema, tonsillar enlargement or uvular deviation, no facial droop. HEART: Regular rate and rhythm without murmur, clicks, rubs. No carotid bruits, pulses are equal in upper and lower extremities LUNGS:Lungs clear to auscultation, no wheezes, rales, crackles, chest moves symmetrically ABD:bowel sounds normal, soft, non-tender, no guarding, rebound, rigidity, no masses noted, no hepatosplenomegaly :No CVA tenderness MSCL: Non-tender, no muscle atrophy, muscles strength 5/5 upper and lower extremities, full range of motion, normal gait NEURO:CN 2-12 intact, sensation normal, reflexes 2/4 upper and lower extremities. finger nose finger test normal, heel whitley test normal SKIN: No rash, erythema or other skin changes Initial Vital Signs Initial Vital Signs: Vital Signs Temperature 98 F 08/24/23 16:19 Pulse Rate 82 08/24/23 16:19 Respiratory Rate 16 08/24/23 16:19 Blood Pressure 178/105 H 08/24/23 16:19 Pulse Oximetry 98 08/24/23 16:19 Oxygen Delivery Method Room Air 08/24/23 16:19 Course Orders Ordered: Discontinued Medications Ketorolac Tromethamine (Ketorolac 30 Mg/Ml Vial) 15 mg IV NOW ONE Stop: 08/24/23 19:48 Last Admin: 08/24/23 20:08 Dose: 15 mg Documented By: GC Ondansetron HCl (Ondansetron 4 Mg Odt) 4 mg PO NOW PRN PRN Reason: Nausea And Vomiting Ondansetron HCl (Ondansetron 4 Mg/2 Ml Inj) 4 mg IV NOW PRN PRN Reason: Nausea And Vomiting Last Admin: 08/24/23 18:34 Dose: 4 mg Documented By: ST Vital Signs Vital signs: Vital Signs - 8 hr 08/24/23 16:19 08/24/23 18:06 Temperature 98 F Pulse Rate 82 70 Respiratory Rate 16 Blood Pressure 178/105 H 163/98 H Pulse Oximetry 98 100 Oxygen Delivery Method Room Air Room Air MDM - Abdominal Pain Lab Data 08/24/23 16:44 08/24/23 16:44 Labs: Lab Results 08/24/23 08/24/23 08/24/23 Range/Units 16:44 16:44 19:16 WBC 6.5 (4.5-11.0) X10^3/uL RBC 4.29 (4.0-5.2) X10^6/uL Hgb 13.1 (12.0-16.0) g/dL Hct 38.4 (36-46) % MCV 89.5 (80-100) fL MCH 30.6 (26-34) PG MCHC 34.2 (30-36) % RDW 13.6 (11.6-14.8) % Plt Count 315 (150-400) X10^3/uL Neut % (Auto) 44.1 L (50-75) % Lymph % (Auto) 40.9 H (25-40) % [place] % (Auto) 9.9 (3-14) % Eos % (Auto) 4.3 H (2-4) % Baso % (Auto) 0.8 (0-2) % Neut # (Auto) 2900 (5057-0402) /uL Lymph # (Auto) 2600 (6819-6396) /uL [place] # (Auto) 600 (0-900) /uL Eos # (Auto) 300 (0-450) /uL Baso # (Auto) 100 (0-100) /uL Sodium 140 (137-145) mmol/L Potassium 3.9 (3.4-5.1) mmol/L Chloride 104 (98-107) mmol/L Carbon Dioxide 28 (22-32) mmol/L BUN 6 L (7-17) mg/dL Creatinine 0.49 L (0.52-1.04) mg/dL Estimated GFR > 60 (>60) mL/min BUN/Creatinine Ratio 12.2 (6-22) Glucose 100 (70-100) mg/dL Calcium 9.4 (8.4-10.2) mg/dL Total Bilirubin 0.3 (0.2-1.3) mg/dL AST 28 (14-36) IU/L ALT 28 (<35) IU/L Alkaline Phosphatase 61 (38-126) U/L Total Protein 8.6 H (6.3-8.2) g/dL Albumin 4.4 (3.5-5.0) g/dL Globulin 4.2 H (1.7-4.1) g/dL Albumin/Globulin Ratio 1.0 (1.0-2.8) Lipase 80 (23-300) U/L Urine RBC 0-1/hpf (0-5/HPF) Urine WBC None seen (0-5/HPF) Ur Squamous Epith Cells 0-1 /hpf (0-5/HPF) Urine Bacteria Occasional (0-1) (None) Ur Culture Indicated? Cult not indicated Micro UA Comment Urine Test (Negative) 08/24/23 Range/Units 19:16 WBC (4.5-11.0) X10^3/uL RBC (4.0-5.2) X10^6/uL Hgb (12.0-16.0) g/dL Hct (36-46) % MCV (80-100) fL MCH (26-34) PG MCHC (30-36) % RDW (11.6-14.8) % Plt Count (150-400) X10^3/uL Neut % (Auto) (50-75) % Lymph % (Auto) (25-40) % [place] % (Auto) (3-14) % Eos % (Auto) (2-4) % Baso % (Auto) (0-2) % Neut # (Auto) (1469-9483) /uL Lymph # (Auto) (6804-2400) /uL [place] # (Auto) (0-900) /uL Eos # (Auto) (0-450) /uL Baso # (Auto) (0-100) /uL Sodium (137-145) mmol/L Potassium (3.4-5.1) mmol/L Chloride (98-107) mmol/L Carbon Dioxide (22-32) mmol/L BUN (7-17) mg/dL Creatinine (0.52-1.04) mg/dL Estimated GFR (>60) mL/min BUN/Creatinine Ratio (6-22) Glucose (70-100) mg/dL Calcium (8.4-10.2) mg/dL Total Bilirubin (0.2-1.3) mg/dL AST (14-36) IU/L ALT (<35) IU/L Alkaline Phosphatase (38-126) U/L Total Protein (6.3-8.2) g/dL Albumin (3.5-5.0) g/dL Globulin (1.7-4.1) g/dL Albumin/Globulin Ratio (1.0-2.8) Lipase (23-300) U/L Urine RBC (0-5/HPF) Urine WBC (0-5/HPF) Ur Squamous Epith Cells (0-5/HPF) Urine Bacteria (None) Ur Culture Indicated? Micro UA Comment Urine Test Negative (Negative) Point of care testing: Urine Dip Bedside Urine Glucose Negative Bedside Urine Bilirubin - Negative Bedside Urine Ketone - Negative Urine Specific [place] 1.025 Bedside Urine Occult Blood +/- Bedside Urine pH 6.0 Bedside Urine Protein - Negative Bedside Urine Urobilinogen - Negative Bedside Urine Nitrite - Negative Bedside Urine Leukocytes - Negative Esterase Imaging Data CT scan - head: Radiologist's Impression: [address] [address] [address] Scan Report Signed Patient: Natalee Miles MR#: [id number] : 1980 Acct:[id number] Age/Sex: 42 / F Date of Service: 08/24/23 Loc: ED Accession Number: [id number] ?? Procedure: CT head/brain wo con Ordering Provider: Deanna Aranda D.O. PROCEDURE:? CT HEAD/BRAIN WO CON ? INDICATIONS:? fisher x 3 weeks, had covid 2 weeks ago, n, urine frequency ? TECHNIQUE:? Noncontrast 4.5 mm thick angled axial sections acquired from the foramen magnum to the vertex, with coronal and sagittal reformats.? For radiation dose reduction, the following was used:? automated exposure control, adjustment of mA and/or kV according to patient size.? ? COMPARISON:? [facility], CT, CT HEAD/BRAIN WO CON, 01/21/2021, 0:00. ? FINDINGS:? Image quality:? Excellent.? ? CSF spaces:? Basal cisterns are patent.? No extra-axial fluid collections.? Ventricles are normal in size and shape.? ? Brain:? No intracranial hemorrhage, mass, or mass effect.? Hwang-white matter interface appears preserved.? ? Skull and face:? Calvarium and visualized facial bones are intact, without suspicious lesions.? ? Sinuses:? Visualized sinuses and mastoids are clear.? ? IMPRESSION:? ? 1. No acute intracranial abnormality. ? ? Dictated by: Elan Jane M.D. on 08/24/2023 at 20:29 ? ? Approved by: Elan Jane M.D. on 08/24/2023 at 20:30? MDM Narrative Medical decision making narrative: Well-appearing 42-year-old female with persistent headaches since having COVID 3 weeks ago. She is had some mild nausea but no persistent vomiting, neurologic exam is negative. Suspicion for meningitis or encephalitis is significantly low she is alert appropriate she does not have any neck pain or movement. She denies any history of migraines. She is also noted some urinary frequency. Head CT was obtained with persistent headache that is not had any improvement. She takes Tylenol ibuprofen PRN for pain that is mildly helpful she has not had a dose since 8:00 a.m. this morning. Patient's lab workup shows elevated lymphocytes, renal function, electrolytes LFTs were negative total protein and globulin are slightly elevated lipase is negative. Point of care urine was negative, was negative and urine microscopy is negative as well. CT head shows no acute change. Patient had Zofran, Toradol. Plan for follow up with primary care for recheck with return precautions. Discharge Plan Departure Patient Disposition: Home Clinical Impression: Headache Activity Restrictions/Additional Instructions: Please follow-up for recheck if your symptoms are persisting. You may continue Tylenol and/or ibuprofen as needed for headaches. Please return for new or worsening symptoms, passing out, sudden vision changes, numbness tingling or weakness, new chest pain or shortness of breath, persistent vomiting or other new or concerning changes. Prescriptions: No Action (DME) Alka Watt [facility] Spacer See Rx Instructions miscellaneous .MEDSUPPLY Qty: 1 0RF Rx Instructions: As directed albuterol sulfate 90 mcg/actuation HFA aerosol inhaler See Rx Instructions .ROUTE .COMPLEX Qty: 8.5 3RF Dose Instruction: INHALE 2 PUFFS BY MOUTH EVERY 4 TO 6 HOURS NEEDED FOR WHEEZING OR SHORTNESS OF BREATH Rx Instructions: INHALE 2 PUFFS BY MOUTH EVERY 4 TO 6 HOURS NEEDED FOR WHEEZING OR SHORTNESS OF BREATH Flovent HFA 110 mcg/actuation HFA aerosol inhaler 1 puff inhalation BID Qty: 12 2RF Rx Instructions: administer with spacer ibuprofen 600 mg Tablet 600 mg PO Q6HR PRN (Reason: Pain, Mild (1-3)) Qty: 45 1RF Prenatabs Rx 29 mg iron- 1 mg Tablet 1 tab PO DAILY Qty: 90 3RF Referrals: Anne Marie Perdomo MD [Primary Care Provider] - Stand Alone Forms: Patient Portal/API
[2023-08-24 19:22] LABS: Bacteria Urine Occasional (0-1); RBC Urine 0-1/HPF (0-5/HPF); Squamous Epithelial Cell Urine 0-1 /HPF (0-5/HPF); WBC Urine None Seen (0-5/HPF)
[2023-08-24 19:24] LABS: Culture Indicated Urine Cult Not Indicated
[2023-08-24 19:26] LABS: Pregnancy Test Urine Negative (Negative)
--- NOTE | 2023-08-24 19:46 | DI.CT.S_ITS ---
PROCEDURE: CT HEAD/BRAIN WO CON INDICATIONS: fisher x 3 weeks, had covid 2 weeks ago, n, urine frequency TECHNIQUE: Noncontrast 4.5 mm thick angled axial sections acquired from the foramen magnum to the vertex, with coronal and sagittal reformats. For radiation dose reduction, the following was used: automated exposure control, adjustment of mA and/or kV according to patient size. COMPARISON: [facility], CT, CT HEAD/BRAIN WO CON, 01/21/2021, 0:00. FINDINGS: Image quality: Excellent. CSF spaces: Basal cisterns are patent. No extra-axial fluid collections. Ventricles are normal in size and shape. Brain: No intracranial hemorrhage, mass, or mass effect. Hwang-white matter interface appears preserved. Skull and face: Calvarium and visualized facial bones are intact, without suspicious lesions. Sinuses: Visualized sinuses and mastoids are clear. IMPRESSION: 1. No acute intracranial abnormality. Dictated by: Elan Jane M.D. on 08/24/2023 at 20:29 Approved by: Elan Jane M.D. on 08/24/2023 at 20:30
[2023-08-24] MEDS: KETOROLAC 30 MG/ML VIAL 15 MG IV (20:08)
== END 2023-08-24 21:33 | disposition home or self-care (01) ==
PROVIDERS: Emergency Medicine; Emergency Provider Emergency Medicine; PCP Family Medicine
DX: R51.9 Headache, unspecified (principal); Z86.16 Personal history of COVID-19
CPT/HCPCS: 36415; 70450; 80053; 81003; 81015; 81025; 83690; 85025; 96374; 96375; 99284; J1885; J2405

== ENCOUNTER → 2025-02-14 09:49 | Outpatient (CLI) | payer OTHER, SELFPAY ==
--- NOTE | 2025-02-14 | DI.RAD.S_ITS ---
PROCEDURE: XR LUMBAR SPINE 2-3V INDICATIONS: BILATERAL LOWER BACK PAIN TECHNIQUE: 3 views of the lumbar spine were acquired. COMPARISON: [facility], CR, XR LUMBAR SPINE 2-3V, 03/26/2023, 15:37. FINDINGS: Bones: 5 [id number] vertebrae are present. There is normal bony alignment. No vertebral body compression fractures. No suspicious bony lesions. Soft tissues: Overlying bowel gas pattern is normal. No suspicious soft tissue calcifications. IMPRESSION: No acute bony abnormality. Dictated by: Jamison Gifford M.D. on 02/15/2025 at 1:58 Approved by: Jamison Gifford M.D. on 02/15/2025 at 1:58
--- NOTE | 2025-02-14 | DI.RAD.S_ITS ---
PROCEDURE: XR HIP W PEL IF DONE RT 2V INDICATIONS: BILATERAL BACK PAIN TECHNIQUE: AP pelvis with lateral view(s) of the left hip(s). COMPARISON: [facility], CR, XR HIP W PEL IF DONE RT 2V, 03/26/2023, 15:35. FINDINGS: Bones: There are no osseous abnormalities. SI and hip joints: Mild degeneration in both hips. SI joints normal. Soft tissues: No soft tissue swelling, calcification or mass. IMPRESSION: Mild bilateral hip degeneration Dictated by: Nixon Lakhain M.D. on 02/15/2025 at 7:37 Approved by: Nixon Lakhani M.D. on 02/15/2025 at 7:38
== END ==
PROVIDERS: PCP Family Medicine; Referring Provider Family Medicine; Visit Provider Family Medicine
DX: M54.41 Lumbago with sciatica, right side (principal); M16.0 Bilateral primary osteoarthritis of hip; M25.551 Pain in right hip; G89.29 Other chronic pain
CPT/HCPCS: 72100; 73502

== ENCOUNTER 2025-08-31 18:41 | Emergency (ER) | payer OTHER, SELFPAY ==
[2025-08-31 19:14] VITALS: BP 152/90; PULSE 81; RESP 18; TEMP 37; O2SAT 100; BMI 40.3
[2025-08-31 22:13] VITALS: BP 133/83; PULSE 80; RESP 16; TEMP 37.2; O2SAT 99
--- NOTE | 2025-09-01 00:42 | ED.SKABFB ---
HPI - Skin/Abscess/Foreign Bdy General Chief complaint: Skin/Abscess/Foreign Body Stated complaint: Swelling side of head Time Seen by Provider: 08/31/25 18:42 Source: patient Mode of arrival: Ambulatory Limitations: no limitations History of Present Illness HPI narrative: 44-year-old female patient, otherwise healthy, who has had a tender area of skin in her left scalp above and posterior to the ear with no drainage. This has been bothering her for 2 days. No fever or chills. Related Data Previous Rx's ?Medication ?Instructions ?Recorded inhalational spacing device #1 ea 06/26/21 ([facility] spacer) albuterol sulfate 90 mcg/actuation See Rx Instructions .Route 01/27/22 aerosol inhaler .COMPLEX asthma #8.5 grams doxycycline hyclate 100 mg capsule 100 mg PO BID 8 days #16 caps 09/01/25 Allergies Allergy/AdvReac Type Severity Reaction Status Date / Time oats (OATS) Allergy Unknown Verified 07/21/25 12:31 latex AdvReac Mild Rash Verified 07/21/25 12:31 DUST Allergy Unknown Uncoded 07/21/25 12:31 Review of Systems Review of Systems ROS Unobtainable: All systems reviewed & are unremarkable except as noted in HPI and below ENT Ears, Nose, Mouth, and Throat: Reports as per HPI Integumentary/Breasts Skin/Breast: Reports as per HPI Patient History Medical History Asthma Cornea transplant recipient Respiratory infection SOB (shortness of breath) Smoking Status: Never smoker alcohol intake frequency: 0-2 drinks per day Exam Narrative Exam Narrative: General: Alert and conversant. No distress. Appears well nourished and well hydrated Craniofacial: Patient has a tender area with slight erythema on the scalp superior and posterior to the ear with no fluctuance. No drainage. Otherwise No evidence of trauma. Nontender and no swelling. Eyes: PERRLA EOMI conjunctiva clear HEENT: Oropharynx clear with no swelling, exudate or asymmetry of the pharynx. Nares clear. No sinus tenderness Neck: No tenderness or adenopathy. No meningismus. Lungs: Nonlabored respiration. Neuro: Alert and oriented. Cranial nerves, motor, sensory and cerebellar all grossly intact. No focal deficit Skin: Warm and normal color. No rashes Psychological: Normal affect and interaction. No evidence of delusion or psychosis. Normal mood. Initial Vital Signs Initial Vital Signs: Vital Signs Temperature 98.6 F 08/31/25 19:14 Pulse Rate 81 08/31/25 19:14 Respiratory Rate 18 08/31/25 19:14 Blood Pressure 152/90 H 08/31/25 19:14 Pulse Oximetry 100 08/31/25 19:14 Oxygen Delivery Method Room Air 08/31/25 19:14 Course Orders Ordered: Discontinued Medications Doxycycline Hyclate (Doxycycline Hyclate 100 Mg Tablet) 100 mg PO NOW ONE Stop: 09/01/25 00:48 Ibuprofen (Ibuprofen 400 Mg Tablet) 400 mg PO NOW ONE Stop: 09/01/25 00:48 Vital Signs Vital signs: Vital Signs - 8 hr 08/31/25 19:14 08/31/25 22:13 Temperature 98.6 F 98.9 F Pulse Rate 81 80 Respiratory Rate 18 16 Blood Pressure 152/90 H 133/83 Pulse Oximetry 100 99 Oxygen Delivery Method Room Air Room Air MDM - Skin/Abscess/Foreign Bdy MDM Narrative Medical decision making narrative: Patient has a tender erythematous area of skin in the scalp which appears to be skin infection/cellulitis without obvious abscess at this point. Plan will be warm packs intermittently, ibuprofen and a course of doxycycline. Follow up with primary care for recheck. Return to the ER if worse Discharge Plan Departure Patient Disposition: Home Clinical Impression: Skin infection, Cellulitis Instructions: DI for Cellulitis -- Adult Activity Restrictions/Additional Instructions: Assessment: Apparent skin infection of the scalp above and behind the ear. No obvious abscess. Plan: Prescription for doxycycline. Warm packs intermittently and ibuprofen. Follow up with your doctor for recheck in 3-4 days. Return to the ER if worse Prescriptions: New doxycycline hyclate 100 mg capsule 100 mg PO BID 8 Days Qty: 16 0RF No Action (DME) Alka Watt [facility] Spacer See Rx Instructions miscellaneous .MEDSUPPLY Qty: 1 0RF Rx Instructions: As directed albuterol sulfate 90 mcg/actuation HFA aerosol inhaler See Rx Instructions .ROUTE .COMPLEX Qty: 8.5 3RF Dose Instruction: INHALE 2 PUFFS BY MOUTH EVERY 4 TO 6 HOURS NEEDED FOR WHEEZING OR SHORTNESS OF BREATH Rx Instructions: INHALE 2 PUFFS BY MOUTH EVERY 4 TO 6 HOURS NEEDED FOR WHEEZING OR SHORTNESS OF BREATH Referrals: Anne Marie Perdomo MD [Primary Care Provider, Family Practice] Stand Alone Forms: Patient Portal/API
[2025-09-01] MEDS: IBUPROFEN 400 MG TABLET PO (01:00)
[2025-09-01] MEDS: DOXYCYCLINE HYCLATE 100 MG TABLET PO (01:00)
[2025-09-01 01:11] VITALS: BP 129/86; PULSE 74; RESP 16; O2SAT 98
== END 2025-09-01 01:05 | disposition home or self-care (01) ==
PROVIDERS: Emergency Provider Emergency Medicine; PCP Family Medicine
DX: L03.811 Cellulitis of head [any part, except face] (principal)
CPT/HCPCS: 99283

== ENCOUNTER → 2025-09-27 13:10 | Outpatient (ROUT) | payer OTHER, SELFPAY ==
[2025-09-27 15:14] LABS: Protein (Total) Urine Random < 5 mg/dL (0-12); Protein Creatinine Ratio Urine 0.02 GRAM/24H
[2025-09-27 15:18] LABS: Urine N gonorrhoeae NOT DETECTED
[2025-09-27 15:46] LABS: Urine Chlamydia NOT DETECTED
== END ==
PROVIDERS: PCP Family Medicine; Visit Provider Obstetrics & Gynecology
DX: O09.899 Supervision of other high risk pregnancies, unspecified trimester (principal); O10.919 Unspecified pre-existing hypertension complicating pregnancy, unspecified trimester; Z3A.08 8 weeks gestation of pregnancy
CPT/HCPCS: 82570; 84156; 87086; 87147; 87491; 87591